=== PATIENT | female | born 1950 | race Caucasian/White ===

== ENCOUNTER 2021-02-12 16:12 | Emergency (ER) | payer MEDICARE, SELFPAY ==
--- NOTE | ~2021-02-12 | US_ITS ---
EXAMINATION: US venous doppler [facility] DATE: 02/12/2021 16:31 INDICATION: Left lower limb pain and swelling. TECHNIQUE: Grayscale ultrasound images without and with compression and Doppler ultrasound images of the left lower extremity veins were obtained. COMPARISON: None. FINDINGS: The visualized portions of left common femoral vein, profunda (deep) femoral vein, femoral vein, popl iteal vein, peroneal veins, posterior tibial veins, and greater saphenous vein outflow are patent. IMPRESSION: 1. No deep venous thrombosis. Reviewed, dictated and finalized at location A.
[2021-02-12 16:14] VITALS: BP 147/98; PULSE 84; RESP 16; TEMP 36.2; O2SAT 100
--- NOTE | 2021-02-12 17:20 | ED.LOWEXIN ---
HPI - Extremity Injury (Lower) General Chief Complaint: Extremity Injury, Lower Stated Complaint: pain left lower leg Time Seen by Provider: 02/12/21 17:12 Source: patient Mode of arrival: ambulatory Limitations: no limitations History of Present Illness HPI Narrative: This is a 70-year-old female that presents to the emergency department for intermittent left calf pain noted over the last couple of weeks. Reports an achy pain in the left calf that seems to be worse after being on her feet. Reports her doctor was concerned she may have a blood clot so was sent to the emergency department. Patient denies any current pain. Denies fever, erythema, edema, or recent injury or trauma. Related Data Allergies Allergy/AdvReac Type Severity Reaction Status Date / Time Penicillins Allergy Mild Verified 03/09/18 15:49 Review of Systems Review of Systems: Narrative: CONSTITUTIONAL: Denies fever SKIN: Denies rash MUSCULOSKELETAL: Reports myalgia. NEUROLOGIC: Denies numbness All systems reviewed & are unremarkable except as noted in HPI and below PMFSH Past Medical History Medical History (Updated 02/12/21 @ 17:27 by Lois Hudson PA-C) History of depression Surgical History Surgical History (Updated 02/12/21 @ 17:23 by Lois Hudson PA-C) History of appendectomy Exam Narrative: Exam Narrative: GENERAL: Well-appearing, well-nourished, and in no acute distress. HEAD: Normocephalic, atraumatic. EYES: EOMI. EXTREMITIES: Normal range of motion. No edema, erythema, warmth or obvious deformity. Normal DP pulses. Normal sensation SKIN: Warm, dry, no rash. NEURO: No focal deficits. Alert and oriented x3. PSYCH: Normal mood and affect Course Vital Signs Vital signs: Vital Signs Temperature 97.1 F L 02/12/21 16:14 Pulse Rate 84 02/12/21 16:14 Respiratory Rate 16 02/12/21 16:14 Blood Pressure 147/98 H 02/12/21 16:14 Pulse Oximetry 100 02/12/21 16:14 Temperature 97.1 F L 02/12/21 16:14 Pulse Rate 84 02/12/21 16:14 Respiratory Rate 16 02/12/21 16:14 Blood Pressure 147/98 H 02/12/21 16:14 Pulse Oximetry 100 02/12/21 16:14 MDM - Extremity Injury (Lower) MDM Narrative Medical decision making narrative: Patient presents to the ER for intermittent achy left calf pain over the last couple of weeks. Seems to be worsened after prolonged standing. No pain while in the ED currently. No recent injury or trauma. She is afebrile and nontoxic-appearing. No erythema, warmth, or edema of the leg. Normal DP pulse. Patient was sent by primary provider to rule out DVT. Left lower extremity venous Doppler is without evidence of DVT. Suspect her discomfort is possibly due to varicosities of the lower extremities. She is stable and felt appropriate for further outpatient evaluation. She was given warnings to return to the ER Imaging Data Radiologist's impression: ITS Impressions Venous Doppler Study 02/12/21 16:32 IMPRESSION: 1. No deep venous thrombosis. Critical Care Time Critical Care Time Critical Care Time: No Discharge Plan Discharge Clinical Impression: Pain of left calf Patient Disposition: Home, Self-Care Condition: Stable Instructions: Venous Insufficiency (DC) Additional Instructions: Return to the emergency department if you experience fever, redness and swelling of your leg, numbness, or any other symptoms that are concerning to you Wear compression stockings. Elevate your legs while seated Follow-up with your primary care doctor Follow-up/Referrals: Mark Anthony,Bettye Moyer MD [Primary Care Provider] - 1 Week
[2021-02-12 17:50] VITALS: BP 128/89; PULSE 76; RESP 18; TEMP 36.6; O2SAT 97
== END 2021-02-12 17:59 | disposition home or self-care (01) ==
PROVIDERS: Emergency Provider Emergency Medicine; PCP Family Medicine
DX: M79.662 Pain in left lower leg (principal)
CPT/HCPCS: 93971; 99284

== ENCOUNTER 2022-07-27 08:43 | Outpatient (CLI) | payer MEDICARE, SELFPAY ==
--- NOTE | ~2022-07-27 | MM_ITS ---
EXAMINATION: MM screening geovanna BI w [facility] HISTORY: Screening TECHNIQUE: Craniocaudal and mediolateral oblique 3-D tomosynthesis images were obtained and synthetic 2-D images were generated. CAD analysis was submitted and interpreted. COMPARISON: 08/22/2019 BREAST PARENCHYMAL COMPOSITION: The breasts are heterogeneously dense, which may obscure small masses FINDINGS: There is possible architectural distortion of the right breast superiorly on MLO view. The left breast is stable without evidence for malignancy. IMPRESSION: 1. Possible architectural distortion superior aspect of the right breast on MLO view. 2. Additional mammographic views and possible breast ultrasound are recommended. BI-RADS Category 0: Incomplete: Needs additional imaging evaluation. Reviewed, dictated and finalized at location A. O RETOUCHER IMPRESSION: 1. Possible architectural distortion superior aspect of the right breast on MLO view. 2. Additional mammographic views and possible breast ultrasound are recommended . BI-RADS Category 0: Incomplete: Needs additional imaging evaluation.
== END 2022-07-27 08:44 | disposition home or self-care (01) ==
PROVIDERS: PCP Family Medicine; Visit Provider Family Medicine
DX: Z12.31 Encounter for screening mammogram for malignant neoplasm of breast (principal); R92.8 Other abnormal and inconclusive findings on diagnostic imaging of breast
CPT/HCPCS: 77063; 77067

== ENCOUNTER 2022-08-20 11:34 | Outpatient (CLI) | payer MEDICARE, SELFPAY ==
--- NOTE | ~2022-08-20 | MMUS_ITS ---
EXAMINATION: MM diagnostic geovanna RT w [facility], US breast RT limited HISTORY: Possible architectural distortion on prior screening mammogram. TECHNIQUE: Additional 3-D tomosynthesis images of the right breast were performed and synthetic 2-D i mages were generated. CAD analysis was submitted and interpreted. High resolution Limited right breas t ultrasound was performed. COMPARISON: Comparison to multiple prior studies sequentially, with oldest reviewed study dated 03/31. BREAST PARENCHYMAL COMPOSITION: The breasts are heterogeneously dense, which may obscure small masses FINDINGS: MAMMOGRAPHIC FINDINGS: There are no suspicious masses, calcifications or architectural distortion in the right breast to sug gest malignancy. ULTRASOUND: Limited right breast ultrasound: Normal heterogeneous echotexture without focal solid or cystic mass. IMPRESSION: 1. No evidence for malignancy in the right breast. 2. Routine yearly screening mammogram and regular clinical breast examination are recommended. BI-RADS Category 1: Negative Reviewed, dictated and finalized at location A. SSIAN ADMINISTRATOR IMPRESSION: 1. No evidence for malignancy in the right breast. 2. Routine yearly screening mammogram and regular clinical breast examination a re recommended. BI-RADS Category 1: Negative
== END 2022-08-20 11:35 | disposition home or self-care (01) ==
LOC: ANHIMG 11:34
PROVIDERS: PCP Family Medicine; Visit Provider Physician Assistant
DX: R92.8 Other abnormal and inconclusive findings on diagnostic imaging of breast (principal)
CPT/HCPCS: 76642; 77061; 77065; G0279

== ENCOUNTER 2023-01-15 09:10 | Emergency (ER) | payer MEDICARE, SELFPAY ==
--- NOTE | 2023-01-15 09:13 | ED.SKABFB ---
HPI - Skin/Abscess/Foreign Bdy General Chief complaint: Skin/Abscess/Foreign Body Stated complaint: Rash Time Seen by Provider: 01/15/23 09:12 Source: patient Mode of arrival: ambulatory Limitations: no limitations History of Present Illness HPI narrative: Ms. Chawla is a 72-year-old female patient presenting to the clinic today with complaints of a rash on her face. She reports that she believes this is shingles as she has had this before. States that it is around her left eye. Denies any visual changes to the left eye. Rash is very itchy, nonpainful, and scattered all over her face. When asked if she has used any new soaps or shampoos she states that she did buy a new facial wash. Related Data Allergies Allergy/AdvReac Type Severity Reaction Status Date / Time Penicillins Allergy Severe Anaphylactic Verified 01/15/23 09:15 Shock Review of Systems Review of Systems: Pertinent positives per HPI. Patient denies any fever, chills, rash, headache, visual changes, dizziness, cough, runny nose, sore throat, shortness of breath, chest pain, palpitations, nausea, vomiting, diarrhea, constipation, abdominal pain, or any urinary issues. [facility] Past Medical History Medical History Depression History of depression Surgical History Surgical History History of appendectomy History of left knee surgery 1987 Family History Family History Other Heart disease Social History Social History Smoking status: Never smoker Second hand tobacco smoke exposure: No Alcohol intake: current Drinks per week: 12 Alcohol use details: wine, 2 at dinner per week Substance use: never Substance use type: does not use Living arrangements: alone Gender identity (if verbalized by the patient): Female Sexual Orientation (if Verbalized by the Patient): Straight or Heterosexual Spiritual care concerns: No Agree to blood products: Yes Comments At the time of my signature, I reviewed and agree with the nursing past medical, surgical, social, and family history. There is no relevant family history pertinent to the patient complaint. Exam Narrative: General: Well-developed, well nourished, in no apparent distress Head: Normocephalic, atraumatic, red itchy welt like rash scattered across to forehead, around left eye, and or bilateral cheeks. Eyes: Pupils equally round and reactive to light bilaterally, EOM intact, sclera and conjunctive clear, no discharge, lids normal Ears: TMs intact and clear, ear canals clear, no drainage, grossly hearing normal. Nose: Nares patent, no discharge, no inflammation, no sinus tenderness. Mouth: Oropharynx without lesions or masses, good dentition, MMM. Neck: Supple, trachea midline, no enlargement of anterior or posterior cervical nodes, no thyroid masses or goiter palpable. Cardio: Regular rate and rhythm, s1 and s2 normal, no murmur appreciated. Resp: Clear to auscultation bilaterally anteriorly and posteriorly, no rhonchi, rales, wheezing or rubs Course Course Emergency Course: Portions of this record may have been created with voice recognition software. Level of Care: Express Care Visit Vital Signs Vital signs: Vital signs reviewed MDM - Skin/Abscess/Foreign Bdy MDM Narrative Medical decision making narrative: At the time of visit patient is resting comfortably on the exam table. I suspect patient has contact dermatitis due to a new facial wash she is using. Prescription for prednisone was sent to the pharmacy and supportive measures were discussed with the patient she voiced understanding discharge instructions agrees to treatment plan. Differential Diagnosis Differential diagnosis: Likely abscess of skin or subc
[2023-01-15 09:20] VITALS: BP 162/96; PULSE 76; RESP 12; TEMP 36.7; O2SAT 98
== END 2023-01-15 09:32 | disposition home or self-care (01) ==
PROVIDERS: Emergency Provider Nurse Practitioner Family; PCP Family Medicine
DX: L25.9 Unspecified contact dermatitis, unspecified cause (principal); F32.A Depression, unspecified
CPT/HCPCS: 99213; G0463

== ENCOUNTER 2023-02-18 08:16 | Emergency (ER) | payer MEDICARE, SELFPAY ==
--- NOTE | 2023-02-18 08:19 | ED.WOUNDLAC ---
HPI - Wound/Laceration General Chief Complaint: Wound/Laceration Stated Complaint: Left Hand Thumb Laceration Time Seen by Provider: 02/18/23 08:18 Source: patient Mode of arrival: ambulatory Limitations: no limitations History of Present Illness HPI narrative: Shikha is a 72-year-old female patient presenting to the clinic today with complaints of a laceration to her proximal medial left thumb. She reports she cut it on a piece of picture frame. Tetanus status is up-to-date. Related Data Allergies Allergy/AdvReac Type Severity Reaction Status Date / Time Penicillins Allergy Severe Anaphylactic Verified 02/18/23 08:26 Shock Review of Systems Review of Systems: Pertinent positives per HPI. Patient denies any fever, chills, rash, headache, visual changes, dizziness, cough, runny nose, sore throat, shortness of breath, chest pain, palpitations, nausea, vomiting, diarrhea, constipation, abdominal pain, or any urinary issues. PMFSH Past Medical History Medical History Depression History of depression Surgical History Surgical History History of appendectomy History of left knee surgery 1987 Family History Family History Other Heart disease Social History Social History Smoking status: Never smoker Second hand tobacco smoke exposure: No Alcohol intake: current Drinks per week: 12 Alcohol use details: wine, 2 at dinner per week Substance use: never Substance use type: does not use Living arrangements: alone Gender identity (if verbalized by the patient): Female Sexual Orientation (if Verbalized by the Patient): Straight or Heterosexual Spiritual care concerns: No Agree to blood products: Yes Comments At the time of my signature, I reviewed and agree with the nursing past medical, surgical, social, and family history. There is no relevant family history pertinent to the patient complaint. Exam Narrative: General: Well-developed, well nourished, in no apparent distress Head: Normocephalic, atraumatic. Cardio: Regular rate and rhythm, s1 and s2 normal, no murmur appreciated. Resp: Clear to auscultation bilaterally, no rhonchi, rales, wheezing or rubs. Integumentary: [place], warm, and dry, intact without lesion, no rashes. 1 cm vertical laceration to the left medial proximal thumb. Bleeding controlled Course Course Emergency Course: Portions of this record may have been created with voice recognition software. Level of Care: Express Care Visit Vital Signs Vital signs: Vital Signs Temperature 36.5 C 02/18/23 08:26 Pulse Rate 83 02/18/23 08:26 Respiratory Rate 16 02/18/23 08:26 Blood Pressure 163/91 H 02/18/23 08:26 Pulse Oximetry 99 02/18/23 08:26 Oxygen Delivery Room Air 02/18/23 08:26 Temperature 36.5 C 02/18/23 08:26 Pulse Rate 83 02/18/23 08:26 Respiratory Rate 16 02/18/23 08:26 Blood Pressure 163/91 H 02/18/23 08:26 Pulse Oximetry 99 02/18/23 08:26 Oxygen Delivery Room Air 02/18/23 08:26 Vital signs reviewed Procedures Laceration Laceration 1: Date: 02/18/23 Site: hand (left thumb) Side (If applicable): left Size (cm): 1 Description: linear Depth: simple, single layer Local Anesthetic: lidocaine 1% Amount of anesthesia used (mL): 2 Pre-repair: wound explored and irrigated ====== Skin Level ====== Skin layer closed with: nylon Size (cm): 4-0 Number of sutures: 3 Technique: simple, interrupted ====== Subcutaneous Layer ====== ====== Muscle Layer ====== ====== Tendon Layer ====== Dressing: Verbal consent obtained for laceration repair. Risk and benefits
[2023-02-18 08:26] VITALS: BP 163/91; PULSE 83; RESP 16; TEMP 36.5; O2SAT 99
== END 2023-02-18 08:52 | disposition home or self-care (01) ==
PROVIDERS: Emergency Provider Nurse Practitioner Family; PCP Family Medicine
DX: S61.012A Laceration without foreign body of left thumb without damage to nail, initial encounter (principal); W45.8XXA Other foreign body or object entering through skin, initial encounter; F32.A Depression, unspecified
CPT/HCPCS: 12001; 99212; G0463

== ENCOUNTER 2023-03-01 15:01 | Emergency (ER) | payer MEDICARE, SELFPAY ==
--- NOTE | 2023-03-01 15:03 | ED.WOUNDLAC ---
HPI - Wound/Laceration General Stated Complaint: suture removal Time Seen by Provider: 03/01/23 15:13 Source: patient and RN notes reviewed Mode of arrival: ambulatory Limitations: no limitations History of Present Illness HPI narrative: 72-year-old female presents concern for suture removal. She reports 3 intact sutures on the 1st digit of her left hand. She denies any redness, swelling, drainage. Related Data Allergies Allergy/AdvReac Type Severity Reaction Status Date / Time Penicillins Allergy Severe Anaphylactic Verified 03/01/23 15:15 Shock Review of Systems Review of Systems: CONSTITUTIONAL: Denies malaise, chills, sweats, or fever. SKIN: Reports 3 sutures that need removed to the 1st digit of her left hand MUSCULOSKELETAL: Denies musculoskeletal pain. All systems reviewed & are unremarkable except as noted in HPI and below PMFSH Past Medical History Medical History Depression History of depression Surgical History Surgical History History of appendectomy History of left knee surgery 1987 Family History Family History Other Heart disease Social History Social History Smoking status: Never smoker Second hand tobacco smoke exposure: No Alcohol intake: current Drinks per week: 12 Alcohol use details: wine, 2 at dinner per week Substance use: never Substance use type: does not use Living arrangements: alone Gender identity (if verbalized by the patient): Female Sexual Orientation (if Verbalized by the Patient): Straight or Heterosexual Spiritual care concerns: No Agree to blood products: Yes Comments At time of signature, agree with nursing past medical, surgical, social and family history. There is no relevant family history pertinent to the presenting complaint Exam Narrative: GENERAL: Well-appearing, well-nourished, and in no acute distress. HEAD: Normocephalic, atraumatic. EYES: PERRLA ENT: Mucous membranes moist. NECK: Supple. No lymphadenopathy CHEST: Clear to auscultation. No respiratory distress. HEART: Regular rate and rhythm. SKIN: Warm, dry. Three intact sutures noted to the 1st digit of the left hand, wound is approximated without drainage, induration, erythema or edema NEURO: Alert and oriented x3. PSYCH: Normal mood and affect Course Course Emergency Course: Patient is aware of diagnosis, understands and agrees to treatment plan. Anticipatory guidance given. Patient agrees to follow-up as directed and is aware of reasons to seek care at the emergency department. Portions of this record may have been created with voice recognition software Level of Care: Express Care Visit Vital Signs Vital signs: Reviewed. MDM - Wound/Laceration MDM Narrative Medical decision making narrative: Verbal consent was obtained. Wound well approximated, no erythema, induration, or discharge noted. 3 sutures completely removed in a sterile fashion. Patient tolerated procedure well, no complications. Patient advised to look for and return for any signs of infection such as redness, swelling, discharge, or worsening pain. Critical Care Time Critical Care Time Critical Care Time: No Discharge Plan Discharge Clinical Impression: Visit for suture removal Patient Disposition: Home, Self-Care Condition: Stable Instructions: Stitches Removal (ED) Additional Instructions: AFTER the stitches are removed: Clean your wound as directed. Carefully wash your wound with soap and water. Pat the area dry with a clean towel. Protect your wound. Your wound can swell, bleed, or split open if it is stretched or bumped. You may need to wear a bandage that supports your wound until it is completely healed. How to
[2023-03-01 15:15] VITALS: BP 138/81; PULSE 86; RESP 16; TEMP 36.9; O2SAT 98
== END 2023-03-01 15:24 | disposition home or self-care (01) ==
PROVIDERS: Emergency Provider Nurse Practitioner; PCP Family Medicine
DX: S61.210D Laceration without foreign body of right index finger without damage to nail, subsequent encounter (principal); X58.XXXD Exposure to other specified factors, subsequent encounter; F32.A Depression, unspecified
CPT/HCPCS: 99211; G0463

== ENCOUNTER 2023-03-07 09:50 | Observation (INO) | payer MEDICARE, SELFPAY ==
[2023-03-07] VITALS (10 sets, daily range): BP systolic 138–182; BP diastolic 76–107; PULSE 76–96; RESP 11–22; TEMP 36.1–36.4; O2SAT 92–99; BMI 29.8
--- NOTE | ~2023-03-07 | XR_ITS ---
EXAMINATION: XR chest 1V portable DATE: 03/07/2023 10:17 INDICATION: Medial chest pain. TECHNIQUE: A single frontal view of the chest was obtained on 2 radiographs. COMPARISON: None. FINDINGS: Sensitivity is decreased by obesity. The chest demonstrates clear lungs without pneumonia, pleural effusion, or pneumothorax. The heart size is normal. IMPRESSION: 1. No acute cardiopulmonary disease. Reviewed, dictated and finalized at location A.
--- NOTE | ~2023-03-07 | NM_ITS ---
EXAMINATION: NM razia stress w perfusion DATE: 03/08/2023 13:50 INDICATION: Chest pain. TECHNIQUE: Rest images were obtained following intravenous administration of 10.1 mCi Tc99m tetrofosm in (Myoview). The patient was infused intravenously with Lexiscan (regadenoson). Then, 33 mCi Tc99m t etrofosmin (Myoview) was administered intravenously, and stress images were obtained. Data was recons tructed into short axis and horizontal and vertical long axis SPECT images. Gated SPECT images were a lso obtained. COMPARISON: Chest CT 03/07/2023 FINDINGS: There is no definite reversible or fixed perfusion abnormality to suggest ischemia or infar ction. There is no segmental wall motion abnormality. Left ventricular ejection fraction measures > 70%. IMPRESSION: 1. No definite ischemia or infarct. 2. Normal left ventricular ejection fraction measuring >70%. Reviewed, dictated and finalized at location A.
--- NOTE | ~2023-03-07 | US_ITS ---
Procedure: Duplex Doppler examination of the bilateral carotids. Indication: Syncope Technique: Real time, color-flow and pulse wave Doppler examination of the bilateral carotids was performed. Findings: Guzman scale ultrasonography of the right neck demonstrated moderate plaque at the right carotid bulb. There was demonstration of normal color-flow and Doppler waveforms within the right common, internal and external carotid arteries. The peak systolic velocities in the right common, internal and externa l carotid arteries were demonstrated to be 103 cm/sec, 87 cm/sec and 62 cm/sec respectively. The [facility] t ICA/CCA ratio was 0.8.The proximal right internal carotid artery demonstrates 0% stenosis relative to the normal distal artery lumen diameter. Guzman scale sonography of the left neck demonstrated small plaque at the proximal left internal caroti d artery. There was demonstration of normal color-flow and wave forms within the left common, interna l and external carotid arteries. The peak systolic velocities in the left common, internal and banking assistant al carotid arteries were demonstrated to be 75cm/sec, 89 cm/sec and 95 cm/sec respectively. The left ICA/CCA ratio was 1.2. The proximal left internal carotid artery demonstrates 0% stenosis relative to the normal distal artery lumen diameter. There was antegrade flow demonstrated in the bilateral vertebral arteries. Impression: No hemodynamically significant stenosis of the bilateral internal carotid arteries. Antegrade flow in the bilateral vertebral arteries. Note: The methodology used is an indirect measurement validated against a direct method (such as the NASCET criteria) that compares diameters at the stenosis to the distal ICA. Reviewed, dictated and finalized at location . Impression: No hemodynamically significant stenosis of the bilateral internal carotid arter ies. Antegrade flow in the bilateral vertebral arteries. Note: The methodology used is an indirect measurement validated against a direct meth od (such as the NASCET criteria) that compares diameters at the stenosis to the distal ICA.
--- NOTE | ~2023-03-07 | CT_ITS ---
EXAMINATION: CTA chest PE protocol DATE: 03/07/2023 11:05 INDICATION: Chest pain. TECHNIQUE: Computed tomography angiography (CTA) of the chest was performed with 100 mL Omnipaque-350 intravenous contrast timed to evaluate the pulmonary arteries. Coronal maximum intensity projection 3D-reconstructions were created by the technologist. Automated exposure control and iterative reconst ruction technique were employed. The dose-length product was 663.92 mGy-cm. COMPARISON: None. FINDINGS: There is peripheral septal thickening with associated mild groundglass opacities in the inf erior lungs. No pleural effusion. The heart size is normal. No pericardial effusion. There is no pulm onary embolus. There is diffuse hepatic steatosis. There is severe thoracic spondylosis. IMPRESSION: 1. No pulmonary embolus. 2. Mild peripheral lower lung disease, which may be mild pulmonary edema and/or mild atelectasis/scar ring. Reviewed, dictated and finalized at location A. IMPRESSION: 1. No pulmonary embolus. 2. Mild peripheral lower lung disease, which may be mild pulmonary edema and/or mild atelectasis/scarring.
--- NOTE | 2023-03-07 09:56 | ECG_ITS ---
Measurements Intervals [place] Rate: 88 P: 35 MO: 132 QRS: -32 QRSD: 120 T: 17 QT: 366 QTc: 443 Interpretive Statements SINUS RHYTHM LEFT AXIS DEVIATION RIGHT BUNDLE BRANCH BLOCK BASELINE ARTIFACT- I, II, III, AVR, AVL, AVF ABNORMAL ECG NO PREVIOUS ECG AVAILABLE FOR COMPARISON Electronically Signed On 03-07-2023 11:21:35 CDT by Vishnu Moses D.O.
--- NOTE | 2023-03-07 10:08 | ED.SYNCOPE ---
HPI - Syncope General Chief Complaint: Syncope Stated Complaint: CHEST PAIN Time Seen by Provider: 03/07/23 09:56 History of Present Illness HPI narrative: Pt says she awoke on the foor of her bedroom sometime in the middle of the night. Pt thinks she passed out because she has no idea how she wound up on the floor. Pt denies injury or RIGGS but says she noticed sharp paiin in her chest when she awoke and this has continued throughout the night. Pt says it is worst with deep breath and movement. 8/10 now. Pt has no prior cardiac history and has not had similar symptoms in past. Related Data Home Medications Medication Instructions Recorded Confirmed acetaminophen 500 mg tablet 500 mg PO Q6H PRN Headache 03/07/23 03/07/23 ibuprofen 600 mg tablet 600 mg PO Q6H PRN headache 03/07/23 03/07/23 Allergies Allergy/AdvReac Type Severity Reaction Status Date / Time Penicillins Allergy Severe Anaphylactic Verified 03/01/23 15:15 Shock almond Allergy Itching Verified 03/07/23 16:32 Review of Systems Review of Systems: All systems reviewed & are unremarkable except as noted in HPI and below [facility] Past Medical History Medical History (Updated 03/07/23 @ 14:57 by Catalina Bal NP) Depression History of depression Sleep walking Surgical History Surgical History (Updated 03/07/23 @ 14:57 by Catalina Bal NP) History of appendectomy History of left knee surgery 1986 S/P tonsillectomy Family History Family History (Updated 03/07/23 @ 14:58 by Catalina Bal NP) Father Acute myocardial infarction Mother No problems noted. Other Heart disease Social History Social History Smoking status: Never smoker Second hand tobacco smoke exposure: No Alcohol intake: current Drinks per week: 14 Alcohol use details: wine, 2 at dinner per week Substance use: never Substance use type: does not use Lack of Transportation: No Lack of Food: Never True Current Housing: I Have Housing Concerned About Future Housing: No Difficulty Paying Gas/Electric Bills: No Difficulty Paying for Meds: No Currently Unemployed: No Education: Associate Degree Difficulty w/ Childcare or Family Care: No Living arrangements: alone Gender identity (if verbalized by the patient): Female Sexual Orientation (if Verbalized by the Patient): Straight or Heterosexual Spiritual care concerns: No Agree to blood products: Yes Exam Const: General: healthy appearing Nutritional Appearance: well nourished Orientation/consciousness: patient oriented x3 Limitations: no limitations Eyes: Conjunctivae: conjunctivae normal EOM: EOMs intact bilaterally Neck: Neck: normal visual inspection Chest: Chest palpation & inspection: normal inspection of the chest and no tenderness Resp: Effort & Inspection: normal respiratory effort Auscultation: clear to auscultation bilaterally Cardio: Rate: regular rate Rhythm: regular rhythm GI: GI Palp: Yes Soft to palpation Auscultation: normal bowel sounds Rectal Exam: normal sphincter tone Back/Spine/Pelvis: Back: no CVA tenderness Skin: General skin exam: normal color Rashes: no rashes Wounds: no wounds Neuro: General: patient oriented x3, moves all extremities, no meningeal signs and no focal motor deficits Cranial nerves: Yes Nystagmus not present Extrem: General: normal to inspection and no clubbing, cyanosis or edema Psych: Mental Status: mental status grossly normal Affect: Anxious affect present Attitude: cooperative Course Vital Signs Vital signs: Vital Signs Temperature 97.5 F L 03/07/23 09:56 Pulse Rate 85 03/07/23 09:56 Respiratory Rate 16 03/07/23 09:56 Blood Pressure 182/96 H 03/07/23 09:56 Pulse Oximetry 96 03/07/23 09:56 Oxygen Delivery Room Air 03/07/23 09:56 Temperature 97.6 F 03/07/23 16:21 Pulse Rate 96 03/07/23 16:21 Respi
[2023-03-07] MEDS: MORPHINE SULFATE (*CRX) 2 MG/ML INJ IV PUSH (10:17)
[2023-03-07] MEDS: ONDANSETRON INJ 4 MG/2 ML VIAL IV PUSH (10:17)
[2023-03-07 10:19] LABS: Basophils Percent Auto 0.3 % (0.2-1.2); Eosinophils Absolute Auto 0.2 K/mm3 (0-0.3); Eosinophils Percent Auto 2.5 % (0-4.4); Hematocrit 45.4 % (37.0-47.0); Hemoglobin 15.5 g/dL (12.0-15.0); Immature Granulocyte Absolute 0.04 K/mm3 (0.00-0.031); Immature Granulocyte Percent A 0.6 % (0-0.5); Lymphocytes Absolute Auto 1.64 K/mm3 (0.9-3.2); Lymphocytes Percent Auto 22.6 % (18.3-44.2); Mean Corpuscular HGB Conc 34.1 g/dl (32-36); Mean Corpuscular Hemoglobin 31.5 pg (26-34); Mean Corpuscular Volume 92.3 fl (80-100); Mean Platelet Volume 8.9 fl (7.4-10.4); Monocytes Absolute Auto 0.6 K/mm3 (0.1-0.6); Monocytes Percent Auto 8.4 % (2.6-8.5); Neutrophils Absolute Auto 4.8 K/mm3 (1.3-6.7); Neutrophils Percent Auto 65.6 % (45.5-73.1); Platelet Count Result 162 k/mm3 (150-375); Red Blood Count 4.92 M/mm3 (4.2-5.4); Red Cell Distribution Width 13.3 % (11.5-14.5); White Blood Count 7.3 K/mm3 (4.5-10.0)
[2023-03-07] MEDS: ASPIRIN 81 MG CHEWABLE TABLET 324 MG PO (10:19)
[2023-03-07 10:30] LABS: Alanine Aminotransferase 41 U/L (6-35); Albumin Level 4.4 g/dL (3.5-5.1); Alkaline Phosphatase 86 U/L (38-126); Anion Gap 6 mmol/L (8-16); Aspartate Amino Transferase 55 U/L (14-36); Bilirubin,Total 0.5 mg/dL (0.2-1.3); Blood Urea Nitrogen 16 mg/dL (7-17); Calcium 9.2 mg/dL (8.4-10.2); Carbon Dioxide 26 mmol/L (22-30); Chloride 103 mmol/L (98-107); Estimated CRCL calculation 89 ml/min; Estimated Glomerular Filt Rate > 60; Glucose 104 mg/dL (65-110); Lipase 129 U/L (23-300); Potassium 4.1 mmol/L (3.4-5.0); Sodium 135 mmol/L (137-145)
[2023-03-07 10:37] LABS: INR 0.9; Prothrombin Time 12.4 Seconds (11.1-14.7)
[2023-03-07 10:38] LABS: Partial Thromboplastin Time 29.6 SECONDS (22.3-36.8)
[2023-03-07 10:42] LABS: Troponin I < 0.012 ng/mL (0.000-0.034)
[2023-03-07 10:52] LABS: Magnesium 2.1 mg/dL (1.6-2.3)
[2023-03-07 11:02] LABS: D Dimer 0.59 ug/mL (<0.48); NT Pro B Type Natriuretic Pept 59 pg/mL (19.9-100)
--- NOTE | 2023-03-07 14:53 | PM.IMHP ---
H&P: HPI History of Present Illness Date/Time: 03/07/23 14:53 Chief Complaint: Syncopal Narrative: This is a 72-year-old female patient who has a history of depression controlled with medication. The patient states that she also sleep walks at times. The patient stated that she woke up on the floor bedroom sometime in the middle a night. She thinks she passed out had no idea how she wound up on the floor. She thinks that she may have been sleepwalking. The patient noticed that she has a abrasion to her right knee and feels that she may have fell down on her right knee initially. The patient initially had no injury but states she noticed a sharp pain in her chest when she woke. The patient states that she has chest pain when she moves. She does not take any medication to make it feel better. The pain is worse with deep breath and with movement. I notice when she leaned forward hurt worse. Patient has no prior cardiac history. She did not have any fever chills. She had no cough. She had no chest pain prior to going to bed last night. Her D-dimer 0.59. Sodium 135. AST is 55 and ALT is 41. Troponins are negative x2. EKG was read as sinus rhythm right bundle-branch block. She was given aspirin, Zofran, morphine and Toradol. Chest x-ray was read as. Chest CTA was read as a follow. No pulmonary embolus. 2. Mild peripheral lower lung disease, which may be mild pulmonary edema and/or mild atelectasis/scarring. The patient is being admitted to observation status on the date of service 03/07/2023 Review of Systems Review of Systems: All systems reviewed & are unremarkable except as noted in HPI and below Constitutional: Constitutional: Reports as per HPI and Reports no additional constitutional complaints Eyes: Eyes: Reports as per HPI and Reports no additional eye complaints ENT: Reports system reviewed and no additional complaints, except as documented and Reports Normal hearing present Cardiovascular: Cardiovascular: Reports no additional cardiovascular complaints Respiratory: Respiratory: Reports no additional respiratory complaints and Reports no additional respiratory complaints Gastrointestinal: Gastrointestinal: Reports as per HPI and Reports no additional gastrointestinal complaints Musculoskeletal: Musculoskeletal: Reports no additional musculoskeletal complaints Integumentary/Breasts: Skin/Breast: Reports system reviewed and no additional complaints, except as docu and Reports as per HPI Neurologic: Reports system reviewed and no additional complaints, except as documented, Reports as per HPI and Reports Normal hearing present Psychiatric: Psychiatric: Reports no additional psychiatric complaints and Reports as per HPI Endocrine: Endocrine: Reports no additional endocrine complaints Hematologic/Lymphatic: Hematologic/Lymphatic: Reports no additional hematologic/lymphatic complaints Allergic/Immunologic: Allergic/Immunologic: Reports no additional allergic/immunologic complaints [facility] Past Medical History Medical History Depression History of depression Sleep walking Surgical History Surgical History (Updated 03/07/23 @ 14:57 by Catalina Bal NP) History of appendectomy History of left knee surgery 1986 S/P tonsillectomy Family History Family History (Updated 03/07/23 @ 14:58 by Catalina Bal NP) Father Acute myocardial infarction Mother No problems noted. Other Heart disease Social History Social History (Updated 03/07/23 @ 18:30 by Catalina Bal NP) Social History: The patient has 1 daughter. She is . She works part-time at [employer]. She lives home alone. She is lifelong nonsmoker. Code status full code Smoking status: Never smoker Second hand tobacco smoke exposure: No Alcohol intake: current Drinks per week: 14 Alcohol use details: wine, 2 at dinner per week Substance u
[2023-03-07 15:12] LABS: Troponin I < 0.012 ng/mL (0.000-0.034)
[2023-03-07] MEDS: KETOROLAC 15 MG/ML VIAL (*BKC) IV PUSH (15:23)
[2023-03-07 19:34] LABS: Troponin I < 0.012 ng/mL (0.000-0.034)
[2023-03-07] MEDS: ACETAMINOPHEN 500 MG TABLET PO (23:09)
[2023-03-08] VITALS (8 sets, daily range): BP systolic 136–171; BP diastolic 77–92; PULSE 69–88; RESP 18–20; TEMP 35.5–36.6; O2SAT 97–99
--- NOTE | 2023-03-08 | ECHO_ITS ---
Patient Info Name: Shikha Chawla Age: 72 years : 1950 Gender: Female Ht: 69 in Wt: 215 lbs BSA: 2.21 m2 HR: 88 bpm BP: 155 / 89 mmHg Heart Rhythm: Sinus Rhythm Technical Quality: Poor Exam Date: 03/08/2023 9:48 AM Exam Location: [facility] Card Pulmonary Patient Status: Inpatient Admit Date: 03/07/2023 Staff Ordering Physician: Catalina Bal NP Community Manager: Viviana Alvarado RDCS Attending Provider: Joshua Vásquez MD Referring Physician: Valeriano CHÁVEZ; Exam Type: CA echo dop color flow w con Study Info Indications - chest pain Reason for Poor Study: poor echocardiographic windows Summary 1. Normal left ventricular size with mild concentric hypertrophy. Good systolic function of all segments. Ejection fraction 60-65%. Grade 2 diastolic dysfunction is present. 2. Mild aortic insufficiency. 3. Pulmonary pressure could not be calculated on this exam. 4. Normal sinus rhythm. Left Ventricle Left ventricular chamber dimension is normal. Left ventricular systolic function is normal, estimated at 60-65%. There is mildly increased left ventricular wall thickness. Left ventricular septal wall motion is normal. The left ventricular diastolic function is grade II diastolic dysfunction. Right Ventricle Right ventricular chamber dimension is normal. Right ventricular systolic function is normal. Left Atria Left atrial chamber dimension is normal. Right Atria Right atrial chamber dimension is normal. Aortic Valve The aortic valve is trileaflet. There is no aortic valve sclerosis. There is no aortic valve stenosis. There is mild aortic valve regurgitation. Pulmonic Valve The pulmonic valve is normal. There is no pulmonic valve stenosis. There is no pulmonic regurgitation. Mitral Valve The mitral valve has normal leaflets. There is no mitral valve stenosis. There is no mitral valve regurgitation. Tricuspid Valve The tricuspid valve leaflets are normal. There is no significant tricuspid valve stenosis. There is trace tricuspid valve regurgitation. No pulmonary hypertension, estimated pulmonary arterial systolic pressure is 13 mmHg. Pericardium/Pleural The pericardium appears normal. There is no pericardial effusion. Inferior Vena Cava Normal inferior vena cava with >50% collapse upon inspiration consistent with Empty right atrial pressure, 10 mmHg. Aorta The aortic root size at the sinus of Valsalva is normal. The prox ascending aorta size is normal. Left Ventricular Outflow Tract Name Value Normal LVOT 2D LVOT Diameter 1.95 cm LVOT Doppler LVOT Peak Gradient 3 mmHg LVOT Mean Gradient 2 mmHg LVOT VTI 21.38 cm LVOT VTI/AV VTI Ratio 0.84 LVOT Stroke Volume 63.70 ml LVOT CO 4.93 l/min LVOT CI 2.23 L/min/m2 Pulmonic Valve Name Value Normal RVOT Doppler
[2023-03-08 06:53] LABS: Basophils Percent Auto 0.4 % (0.2-1.2); Eosinophils Absolute Auto 0.2 K/mm3 (0-0.3); Eosinophils Percent Auto 4.4 % (0-4.4); Hematocrit 44.1 % (37.0-47.0); Hemoglobin 14.6 g/dL (12.0-15.0); Immature Granulocyte Absolute 0.02 K/mm3 (0.00-0.031); Immature Granulocyte Percent A 0.4 % (0-0.5); Lymphocytes Absolute Auto 1.26 K/mm3 (0.9-3.2); Mean Corpuscular HGB Conc 33.1 g/dl (32-36); Mean Corpuscular Hemoglobin 31.3 pg (26-34); Mean Corpuscular Volume 94.4 fl (80-100); Monocytes Absolute Auto 0.4 K/mm3 (0.1-0.6); Monocytes Percent Auto 8.7 % (2.6-8.5); Neutrophils Absolute Auto 3.1 K/mm3 (1.3-6.7); Neutrophils Percent Auto 61.1 % (45.5-73.1); Platelet Count Result 140 k/mm3 (150-375); Red Blood Count 4.67 M/mm3 (4.2-5.4); Red Cell Distribution Width 13.4 % (11.5-14.5)
[2023-03-08 07:04] LABS: Lactic Acid Reflex 0.9 mmol/L (0.7-2.0)
[2023-03-08 07:07] LABS: Alanine Aminotransferase 36 U/L (6-35); Alkaline Phosphatase 68 U/L (38-126); Anion Gap 3 mmol/L (8-16); Aspartate Amino Transferase 45 U/L (14-36); Bilirubin,Total 0.7 mg/dL (0.2-1.3); Blood Urea Nitrogen 17 mg/dL (7-17); Calcium 8.6 mg/dL (8.4-10.2); Carbon Dioxide 31 mmol/L (22-30); Chloride 102 mmol/L (98-107); Estimated CRCL calculation 87 ml/min; Estimated Glomerular Filt Rate > 60; Glucose 109 mg/dL (65-110); Magnesium 2.1 mg/dL (1.6-2.3); Potassium 3.7 mmol/L (3.4-5.0); Sodium 136 mmol/L (137-145)
[2023-03-08] MEDS: ACETAMINOPHEN 500 MG TABLET PO ×2 (08:44→19:42)
[2023-03-08] MEDS: PERFLUTREN LIPID MICROSPHERES 1.5 ML VIAL DILUTED TO 10 ML TOTAL VOLUME IV PUSH (10:00)
[2023-03-08] MEDS: ENOXAPARIN 40 MG/0.4 ML SYRINGE SUB-Q (14:11)
[2023-03-08] MEDS: SERTRALINE HCL 50 MG TABLET 100 MG PO (14:11)
--- NOTE | 2023-03-08 15:01 | EST_ITS ---
Patient Info Name: Shikha Chawla Age: 72 years : 1950 Gender: Female Ht: 69 in Wt: 210 lbs BSA: 2.18 m2 HR: 73 bpm BP: 146 / 82 mmHg Heart Rhythm: Sinus Rhythm Exam Date: 03/08/2023 12:55 PM Exam Location: [facility] Stress Patient Status: Inpatient Admit Date: 03/07/2023 Staff Ordering Physician: Catalina Bal NP Attending Provider: Joshua Vásquez MD Exercise Technologist: Vandana Rueda, REBEKAH Nurse: Ame Proctor APN Exam Type: CA stress razia w NM Study Info Indications R07.9 - Chest pain, unspecified A regadenoson stress test was performed. Summary 1. No abnormal ST-T wave changes with lexiscan. 2. Nuclear test results to follow. Protocol: Lexiscan Stress ECG Details Stage: REST Duration (min): 0 min : 57 sec HR (bpm): 75 SBP (mmHg): 146 DBP (mmHg): 82 Stage: REST Duration (min): 5 min : 23 sec HR (bpm): 79 SBP (mmHg): 146 DBP (mmHg): 82 Stage: STAGE 1 Duration (min): 0 min : 59 sec HR (bpm): 93 SBP (mmHg): 144 DBP (mmHg): 73 Stage: RECOVERY Duration (min): 1 min : 0 sec HR (bpm): 97 SBP (mmHg): 144 DBP (mmHg): 73 Stage: RECOVERY Duration (min): 2 min : 0 sec HR (bpm): 90 SBP (mmHg): 144 DBP (mmHg): 73 Stage: RECOVERY Duration (min): 3 min : 0 sec HR (bpm): 89 SBP (mmHg): 142 DBP (mmHg): 78 Stage: RECOVERY Duration (min): 3 min : 17 sec HR (bpm): 87 SBP (mmHg): 142 DBP (mmHg): 78 Rest HR: 79 bpm Peak HR: 99 bpm Rest Sys BP: 146 mmHg Peak Sys BP: 144 mmHg Max Pred HR: 148 bpm % Max Pred HR: 67 % Target HR: 126 bpm Max RPP: 14,256 bpm*mmHg BP Response: Normal blood pressure response Termination Reason: Completed protocol Cardiac Symptoms: None Total Time: 1 min : 0 sec Rest Chung BP: 82 mmHg Peak Chung BP: 73 mmHg Total Dose: 0.4 mg Resting ECG Normal sinus rhythm - normal ECG. Stress ECG No abnormal ST/T wave changes with exercise. Arrhythmias None. Report Signatures
--- NOTE | 2023-03-08 17:27 | WPDPN ---
Progress Note: A&P Assessment and Plan (1) Syncope: Code(s): R55 - Syncope and collapse Status: Acute Assessment and Plan: This is a 72-year-old female patient who has a history of depression controlled with medication.? The patient states that she also sleep walks at times.? The patient stated that she woke up on the floor bedroom sometime in the middle a night.? She thinks she passed out had no idea how she wound up on the floor.? She thinks that she may have been sleepwalking.? The patient noticed that she has a abrasion to her right knee and feels that she may have fell down on her right knee initially.? The patient initially had no injury but states she noticed a sharp pain in her chest when she woke.? The patient states that she has chest pain when she moves.? She does not take any medication to make it feel better.? The pain is worse with deep breath and with movement.? I notice when she leaned forward hurt worse.? Patient has no prior cardiac history.? She did not have any fever chills.? She had no cough.? She had no chest pain prior to going to bed last night.? Her D-dimer 0.59.? Sodium 135.? AST is 55 and ALT is 41.? Troponins are negative x2.? EKG was read as sinus rhythm right bundle-branch block.? She was given aspirin, Zofran, morphine and Toradol.? Chest x-ray was read as.? Chest CTA was read as a follow. No pulmonary embolus. 2. Mild peripheral lower lung disease, which may be mild pulmonary edema and/or mild atelectasis/scarring.? The patient is being admitted to observation status on the date of service 03/07/2023 04/08/2023 interval history: patient is admitted with c/o of syncopal episode, initial work up concerning for cardiac issues, will consult tube tester and further recommendations to follow. (2) Chest pain: Code(s): R07.9 - Chest pain, unspecified Status: Acute Assessment and Plan: Patient with chest pain, ekg is normal and 3 sets of cardiac enzymes are negative, will do cardiac echo. (3) Depression: Code(s): F32.A - Depression, unspecified Status: Acute Subjective Date/time seen: 03/08/23 17:27 Interval history: Syncopal Narrative: This is a 72-year-old female patient who has a history of depression controlled with medication.? The patient states that she also sleep walks at times.? The patient stated that she woke up on the floor bedroom sometime in the middle a night.? She thinks she passed out had no idea how she wound up on the floor.? She thinks that she may have been sleepwalking.? The patient noticed that she has a abrasion to her right knee and feels that she may have fell down on her right knee initially.? The patient initially had no injury but states she noticed a sharp pain in her chest when she woke.? The patient states that she has chest pain when she moves.? She does not take any medication to make it feel better.? The pain is worse with deep breath and with movement.? I notice when she leaned forward hurt worse.? Patient has no prior cardiac history.? She did not have any fever chills.? She had no cough.? She had no chest pain prior to going to bed last night.? Her D-dimer 0.59.? Sodium 135.? AST is 55 and ALT is 41.? Troponins are negative x2.? EKG was read as sinus rhythm right bundle-branch block.? She was given aspirin, Zofran, morphine and Toradol.? Chest x-ray was read as.? Chest CTA was read as a follow. No pulmonary embolus. 2. Mild peripheral lower lung disease, which may be mild pulmonary edema and/or mild atelectasis/scarring.? The patient is being admitted to observation status on the date of service 03/07/2023 04/08/2023 interval history: patient is admitted with c/o of syncopal episode, initial work up concerning for cardiac issues, will consult tube tester and further recommendations to follow. Objective Data Vital Signs Vital Signs: Vital Signs - 24 hr 03/07/23 20:00 03/07/23 22:00 03/07/23 20:00 Temperature 96.9 F L Pulse Rate 96 7
[2023-03-09] VITALS: PULSE 79
[2023-03-09] MEDS: IBUPROFEN 600 MG TABLET PO (02:52)
[2023-03-09 04:00] VITALS: PULSE 69
[2023-03-09 06:00] VITALS: BP 161/84; PULSE 74; RESP 16; TEMP 35.7; O2SAT 97
[2023-03-09 08:00] VITALS: PULSE 77
[2023-03-09] MEDS: SERTRALINE HCL 50 MG TABLET 100 MG PO (08:45)
[2023-03-09] MEDS: ENOXAPARIN 40 MG/0.4 ML SYRINGE SUB-Q (08:45)
--- NOTE | 2023-03-09 12:27 | PCCCNOTE ---
On 03/09/23, the student, [Karmen Yost], provided care and completed [facility] documentation on this patient. I have reviewed the student's documentation and agree with the findings.
--- NOTE | 2023-03-09 12:46 | PM.DS ---
DS: Admitting Diagnosis Discharge Date 03/09/2023 Admitting Diagnosis syncopal DS: Discharge Diagnosis Discharge Diagnosis (1) Syncope: Code(s): R55 - Syncope and collapse Status: Acute Assessment and Plan: This is a 72-year-old female patient who has a history of depression controlled with medication.? The patient states that she also sleep walks at times.? The patient stated that she woke up on the floor bedroom sometime in the middle a night.? She thinks she passed out had no idea how she wound up on the floor.? She thinks that she may have been sleepwalking.? The patient noticed that she has a abrasion to her right knee and feels that she may have fell down on her right knee initially.? The patient initially had no injury but states she noticed a sharp pain in her chest when she woke.? The patient states that she has chest pain when she moves.? She does not take any medication to make it feel better.? The pain is worse with deep breath and with movement.? I notice when she leaned forward hurt worse.? Patient has no prior cardiac history.? She did not have any fever chills.? She had no cough.? She had no chest pain prior to going to bed last night.? Her D-dimer 0.59.? Sodium 135.? AST is 55 and ALT is 41.? Troponins are negative x2.? EKG was read as sinus rhythm right bundle-branch block.? She was given aspirin, Zofran, morphine and Toradol.? Chest x-ray was read as.? Chest CTA was read as a follow. No pulmonary embolus. 2. Mild peripheral lower lung disease, which may be mild pulmonary edema and/or mild atelectasis/scarring.? The patient is being admitted to observation status on the date of service 03/07/2023 04/08/2023 interval history: patient is admitted with c/o of syncopal episode, initial work up concerning for cardiac issues, will consult dip dyer and further recommendations to follow. (2) Chest pain: Code(s): R07.9 - Chest pain, unspecified Status: Acute Assessment and Plan: Patient with chest pain, ekg is normal and 3 sets of cardiac enzymes are negative, will do cardiac echo. (3) Depression: Code(s): F32.A - Depression, unspecified Status: Acute DS: Summary Hospital Course Reason for hospitalization: Syncopal Narrative: This is a 72-year-old female patient who has a history of depression controlled with medication.? The patient states that she also sleep walks at times.? The patient stated that she woke up on the floor bedroom sometime in the middle a night.? She thinks she passed out had no idea how she wound up on the floor.? She thinks that she may have been sleepwalking.? The patient noticed that she has a abrasion to her right knee and feels that she may have fell down on her right knee initially.? The patient initially had no injury but states she noticed a sharp pain in her chest when she woke.? The patient states that she has chest pain when she moves.? She does not take any medication to make it feel better.? The pain is worse with deep breath and with movement.? I notice when she leaned forward hurt worse.? Patient has no prior cardiac history.? She did not have any fever chills.? She had no cough.? She had no chest pain prior to going to bed last night.? Her D-dimer 0.59.? Sodium 135.? AST is 55 and ALT is 41.? Troponins are negative x2.? EKG was read as sinus rhythm right bundle-branch block.? She was given aspirin, Zofran, morphine and Toradol.? Chest x-ray was read as.? Chest CTA was read as a follow. No pulmonary embolus. 2. Mild peripheral lower lung disease, which may be mild pulmonary edema and/or mild atelectasis/scarring.? The patient is being admitted to observation status on the date of service 03/07/2023 Hospital Course: patient is admitted with c/o of syncopal episode,? initial work up concerning for cardiac issues, will consult dip dyer and further recommendations to follow., patient cardiac echo is normal: Left ventricular chamber dimension is normal. ? Left
== END 2023-03-09 13:25 | disposition home or self-care (01) ==
LOC: ANHED 11:54 → ANH3MEDSUR 03-09 07:57
PROVIDERS: Nurse Practitioner; Admitting Provider Internal Medicine; Emergency Provider Emergency Medicine; PCP Family Medicine; Visit Provider Family Medicine
DX: R55 Syncope and collapse (principal); R07.9 Chest pain, unspecified; S80.211A Abrasion, right knee, initial encounter; W19.XXXA Unspecified fall, initial encounter; J84.9 Interstitial pulmonary disease, unspecified; F51.3 Sleepwalking [somnambulism]; F41.9 Anxiety disorder, unspecified; F32.A Depression, unspecified; R79.1 Abnormal coagulation profile; I51.89 Other ill-defined heart diseases; R94.31 Abnormal electrocardiogram [ECG] [EKG]; I45.10 Unspecified right bundle-branch block; F10.90 Alcohol use, unspecified, uncomplicated; E66.9 Obesity, unspecified; Z68.29 Body mass index [BMI] 29.0-29.9, adult; I35.1 Nonrheumatic aortic (valve) insufficiency; Z79.1 Long term (current) use of non-steroidal anti-inflammatories (NSAID); Z79.899 Other long term (current) drug therapy
CPT/HCPCS: 36415; 71045; 71275; 78452; 80053; 83605; 83690; 83735; 83880; 84443; 84484; 85025; 85380; 85610; 85730; 93005; 93017; 93880; 96372; 96374; 96375; 99285; A9270; A9502; C8929; G0378; J1650; J1885; J2270; J2405; J2785; Q9957; Q9967

== ENCOUNTER 2023-06-15 09:07 | Outpatient (CLI) | payer MEDICARE, SELFPAY ==
--- NOTE | 2023-06-29 13:57 | WPDSLEEPSTUD ---
Sleep Study Date of Study: 06/15/23 Ordering Provider: Awa Roque DO Interpreting Physician: Awa Roque DO Sleep Study Type: Split Polysomnogram Height: 1.75 m Weight: 99.79 kg Body Mass Index: 32.5 Neck Circumference (inches): 17 [place]: 6 Reason for Sleep Study History of sleep walking. Woke up one morning on floor with chest pain and unsure how she got there. Sleep History The patient is a 72-year-old female with anxiety and sleep walking min had a sleep study ordered for evaluation of multiple sleep disorders. The patient frequently awakens from sleep short of breath. She frequently awakens at night with heartburn, belching or cough. She frequently snores and is frequently loud enough that others complain. She frequently has trouble sleeping when she has a cold. She occasionally wakes up gasping for air throughout the night. She frequently has breathing problems at night observed by herself or others. She denies sweating excessively at night. She denies having heart palpitations or irregular heartbeats during the night. She rarely falls asleep during the day but never falls asleep while driving. She denies sleep paralysis and cataplexy. She denies having trouble at school or work due to sleepiness. She occasionally experiences vivid dreamlike scenes upon awakening or falling asleep. She denies feeling afraid of going to sleep. She occasionally has nightmares and frequently remembers her dreams. She frequently feels sad, depressed and anxious. She frequently has muscular tension. She denies noticing parts of her body jerk. She frequently kicks during the night. She frequently has crawling and aching feelings in legs and frequently has leg pain during the night. She denies grinding her teeth during sleep and denies awakening with morning jaw pain. She is rarely bothered by pain during the day but never awakened by pain during the night. She frequently wakes up feeling stiff in the morning. She frequently wakes up with sore or achy muscles. She frequently wakes up with pain in the neck, spine or other joints. The patient goes to bed at 9:00 p.m. on weekdays and between 9-10 p.m. on the weekends. It takes her few minutes to fall asleep. She wakes up 3 times throughout the night to urinate and get a drink. She is able to fall back asleep within a few minutes. She wakes up between 6-6:30 a.m. on weekdays and at 6:30 a.m. on the weekends. He typically gets 7 hours of sleep per night. She will stay in bed for 5 minutes after waking up in the morning. She currently lives alone. She denies consuming any caffeinated beverages within 2 hours of bedtime. She denies engaging in physical exercise before bedtime. She denies reading and watching television before falling asleep. She denies taking naps in the afternoon or the evening. She has 1 cup of coffee per day, 1 caffeinated soda and 2-3 glasses of caffeinated iced tea per day. She consumes 2-3 glasses of wine per day. She denies tobacco and recreational drug use. [facility]MERLY [facility] Past Medical History Medical History Depression History of depression Sleep walking Surgical History Surgical History History of appendectomy History of left knee surgery 1986 S/P tonsillectomy Family History Family History Father Acute myocardial infarction Mother No problems noted. Other Heart disease Social History Social History Social History: The patient has 1 daughter. She is . She works part-time at [employer]. She lives home alone. She is lifelong nonsmoker. Code status full code Smoking status: Never smoker Second hand tobacco smoke exposure: No Alcohol intake: current Drinks per week: 14 Alc
[2023-06-29 15:15] VITALS: BMI 32.5
== END 2023-06-16 07:37 | disposition home or self-care (01) ==
LOC: ANHCSM 09:09
PROVIDERS: PCP Family Medicine; Visit Provider Family Medicine
DX: G47.33 Obstructive sleep apnea (adult) (pediatric) (principal)
CPT/HCPCS: 95811

== ENCOUNTER 2023-10-06 08:54 | Outpatient (CLI) | payer MEDICARE, SELFPAY ==
--- NOTE | ~2023-10-06 | XR_ITS ---
EXAMINATION: XR shoulder RT min 2V DATE: 10/06/2023 09:10 INDICATION: Right shoulder pain. Fall. TECHNIQUE: 4 views of right shoulder were obtained. COMPARISON: None. FINDINGS: Bone alignment is normal. No fracture. There is mild osteoarthritis of glenohumeral joint a nd moderate osteoarthritis of the acromioclavicular joint. IMPRESSION: 1. Polyarticular osteoarthritis. Reviewed, dictated and finalized at location A. TAL INSPECTOR
== END 2023-10-06 08:55 ==
PROVIDERS: PCP Family Medicine; Visit Provider Nurse Practitioner
DX: M19.011 Primary osteoarthritis, right shoulder (principal)
CPT/HCPCS: 73030

== ENCOUNTER 2023-12-01 14:28 | Outpatient (CLI) | payer MEDICARE, SELFPAY ==
--- NOTE | ~2023-12-01 | MM_ITS ---
EXAMINATION: MM screening geovanna BI w [facility] HISTORY: Screening mammogram TECHNIQUE: Craniocaudal and mediolateral oblique 3-D tomosynthesis images were obtained and synthetic 2-D images were generated. CAD analysis was submitted and interpreted. COMPARISON: 08/20 sided on 23 diagnostic right mammogram and Limited right breast ultrasound examinati on, reported negative 07/27/2022, 08/22/2019 bilateral screening mammogram examinations BREAST PARENCHYMAL COMPOSITION: The breasts are heterogeneously dense, which may obscure small masses . FINDINGS: Occasional bilateral benign calcifications. There is no evidence of suspicious mass, calcif ication, or architectural distortion to suggest malignancy in either breast. There has been no suspic ious interval change. IMPRESSION: 1. No mammographic evidence of malignancy. 2. Recommend routine screening mammography in one year. BI-RADS Category 1: Negative Reviewed, dictated and finalized at location A.
== END 2023-12-01 14:29 | disposition home or self-care (01) ==
LOC: ANHIMG 14:29
PROVIDERS: PCP Family Medicine; Visit Provider Family Medicine
DX: Z12.31 Encounter for screening mammogram for malignant neoplasm of breast (principal)
CPT/HCPCS: 77063; 77067

== ENCOUNTER 2024-07-12 09:32 | Outpatient (CLI) | payer MEDICARE, SELFPAY ==
[2024-07-12 12:41] LABS: Basophils Percent Auto 0.5 % (0.2-1.2); Eosinophils Absolute Auto 0.1 K/mm3 (0-0.3); Eosinophils Percent Auto 2.5 % (0-4.4); Hematocrit 48.3 % (37.0-47.0); Hemoglobin 15.5 g/dL (12.0-15.0); Immature Granulocyte Absolute 0.02 K/mm3 (0.00-0.031); Immature Granulocyte Percent A 0.4 % (0-0.5); Lymphocytes Absolute Auto 1.58 K/mm3 (0.9-3.2); Lymphocytes Percent Auto 27.8 % (18.3-44.2); Mean Corpuscular HGB Conc 32.1 g/dl (32-36); Mean Corpuscular Hemoglobin 30.7 pg (26-34); Mean Corpuscular Volume 95.6 fl (80-100); Mean Platelet Volume 9.8 fl (7.4-10.4); Monocytes Absolute Auto 0.5 K/mm3 (0.1-0.6); Monocytes Percent Auto 8.8 % (2.6-8.5); Neutrophils Absolute Auto 3.4 K/mm3 (1.3-6.7); Platelet Count Result 175 k/mm3 (150-375); Red Blood Count 5.05 M/mm3 (4.2-5.4); Red Cell Distribution Width 13.2 % (11.5-14.5); White Blood Count 5.7 K/mm3 (4.5-10.0)
[2024-07-12 13:02] LABS: Alanine Aminotransferase 26 U/L (6-35); Albumin Level 4.5 g/dL (3.5-5.1); Alkaline Phosphatase 83 U/L (38-126); Anion Gap 3 mmol/L (4-12); Aspartate Amino Transferase 44 U/L (14-36); Bilirubin,Total 0.7 mg/dL (0.2-1.3); Blood Urea Nitrogen 15 mg/dL (7-17); Calcium 9.1 mg/dL (8.4-10.2); Carbon Dioxide 30 mmol/L (22-30); Chloride 102 mmol/L (98-107); Cholesterol 218 mg/dL (0-200); Estimated Glomerular Filt Rate > 60; Glucose 111 mg/dL (65-110); HDL Direct 79 mg/dL; Potassium 4.7 mmol/L (3.4-5.0); Sodium 135 mmol/L (137-145); Triglycerides 122 mg/dL (<150)
[2024-07-12 13:13] LABS: LDL Cholesterol Direct 111 mg/dL
[2024-07-12 13:15] LABS: Vitamin D 25 Hydroxy 22.3 ng/mL
[2024-07-12 14:04] LABS: Hemoglobin A1C 5.9 % (<5.7)
== END 2024-07-12 09:33 | disposition home or self-care (01) ==
PROVIDERS: PCP Internal Medicine; Visit Provider Clinical Nurse Specialist
DX: R07.9 Chest pain, unspecified (principal); R55 Syncope and collapse; R73.9 Hyperglycemia, unspecified; E55.9 Vitamin D deficiency, unspecified; R73.03 Prediabetes; F32.A Depression, unspecified; F41.9 Anxiety disorder, unspecified; G47.33 Obstructive sleep apnea (adult) (pediatric); Z13.220 Encounter for screening for lipoid disorders; Z13.29 Encounter for screening for other suspected endocrine disorder
CPT/HCPCS: 36415; 80053; 80061; 82306; 83036; 84443; 85025

== ENCOUNTER 2024-07-16 13:45 | Outpatient (CLI) | payer MEDICARE, SELFPAY ==
[2024-07-16 19:42] LABS: Basophils Percent Auto 0.6 % (0.2-1.2); Eosinophils Absolute Auto 0.1 K/mm3 (0-0.3); Eosinophils Percent Auto 1.8 % (0-4.4); Hematocrit 46.5 % (37.0-47.0); Hemoglobin 15.2 g/dL (12.0-15.0); Immature Granulocyte Absolute 0.02 K/mm3 (0.00-0.031); Immature Granulocyte Percent A 0.3 % (0-0.5); Lymphocytes Absolute Auto 1.94 K/mm3 (0.9-3.2); Lymphocytes Percent Auto 28.5 % (18.3-44.2); Mean Corpuscular HGB Conc 32.7 g/dl (32-36); Mean Corpuscular Hemoglobin 31.1 pg (26-34); Mean Corpuscular Volume 95.3 fl (80-100); Mean Platelet Volume 9.9 fl (7.4-10.4); Monocytes Absolute Auto 0.5 K/mm3 (0.1-0.6); Monocytes Percent Auto 6.6 % (2.6-8.5); Neutrophils Absolute Auto 4.2 K/mm3 (1.3-6.7); Neutrophils Percent Auto 62.2 % (45.5-73.1); Platelet Count Result 190 k/mm3 (150-375); Red Blood Count 4.88 M/mm3 (4.2-5.4); Red Cell Distribution Width 13.1 % (11.5-14.5); White Blood Count 6.8 K/mm3 (4.5-10.0)
== END 2024-07-16 13:46 | disposition home or self-care (01) ==
LOC: ANHGOSHLAB 13:46
PROVIDERS: PCP Internal Medicine; Visit Provider Clinical Nurse Specialist
DX: D58.2 Other hemoglobinopathies (principal)
CPT/HCPCS: 36415; 85025

== ENCOUNTER 2024-12-27 07:33 | Outpatient (CLI) | payer MEDICARE, SELFPAY ==
--- NOTE | ~2024-12-27 | MM_ITS ---
EXAMINATION: MM screening geovanna BI w [facility] HISTORY: Screening TECHNIQUE: Craniocaudal and mediolateral oblique 3-D tomosynthesis images were obtained and synthetic 2-D images were generated. CAD analysis was submitted and interpreted. COMPARISON: Comparison to multiple prior studies sequentially, with oldest reviewed study dated 08/22. BREAST PARENCHYMAL COMPOSITION: Dense: The breasts are heterogeneously dense, which may obscure small masses FINDINGS: There is no evidence of suspicious mass, calcification, or architectural distortion to sugg est malignancy in either breast. There has been no suspicious interval change. IMPRESSION: 1. No mammographic evidence of malignancy. 2. Recommend routine screening mammography in one year. BI-RADS Category 1: Negative Reviewed, dictated and finalized at location []
--- OUTSIDE RECORDS SUMMARY | 2024-12-27 07:37 | XMS_ITS | Referral Summary ---
Author Organization [facility] al Address [address] [place] [address] Care Team Providers Care Atomic Physics Teacher Name Role Phone Ayesha Richards MD Primary Care Provider [phone] Allergies Active Allergy Reactions Criticality Noted Date Comments Penicillins Swelling Medium 06/12/2013 Swelling Medications sertraline (ZOLOFT) 100 mg tablet Take 100 mg by mouth daily 08/31/2021 Active vitamin X75-qhmnm acid 0.5-1 mg tabletIndication s:Vitamin Deficiency Take 1 tablet by mouth daily 90 tablet 10/20/2021 Active Social History Tobacco Use Types Packs/Day Years Used Date Smoking Tobacco: Never Personal Safety Answer Date Recorded Getting School Help Needed Not on file 10/22 Comments No Sex and Gender Information Value Date Recorded Sex Assigned at Not on file 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 Gender Identity Not on file Sexual Orientation Not on file Last Filed Vital Signs Vital Sign Reading Time Taken Comments Blood Pressure 132/81 10/20/2021 3:10 PM CDT Pulse 83 10/20/2021 3:10 PM CDT Temperature 36.7 C (98.1 F) 10/20/2021 10:35 AM CDT Respiratory Rate 18 10/20/2021 3:10 PM CDT Oxygen Saturation 95% 10/20/2021 3:10 PM CDT Inhaled Oxygen Concentration - - Weight 99.8 kg (220 lb) 10/20/2021 10:35 AM CDT Height 175.3 cm (5' 9 ) 10/20/2021 10:35 AM CDT Body Mass Index 32.49 10/20/2021 10:35 AM CDT Plan of Treatment Not on file Insurance [facility] MEDICARE [employer] MEDICARE HMO Care Teams Atomic Physics Teacher Relationship Specialty Start Date End Date Ayesha Richards MD PCP - General Family Medicine 10/20/21
--- OUTSIDE RECORDS SUMMARY | 2024-12-27 07:37 | XMS_ITS | Clinical Summary ---
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 Gender Identity Not on file Sexual Orientation Not on file Plan of Treatment Health Maintenance Due Date Last Done Comments DEXA Bone Density 1950 Hepatitis C Virus (HCV) Screening 1950 Colonoscopy 12/20/1995 Colorectal Cancer Screening 12/20/1995 Cologuard 2000 Immunochemical Fecal Occult Blood 2000 Mammogram 2000 Zoster Immunization (1 of 2) 2000 Influenza Immunization (#1) 04/08/2024/2 04/2020, 05/29/2018, 06/08/2017, Additional history exists SARS-COV-2 Immunization ( season) 2024 Respiratory Syncytial Virus (RSV) Immunization (Adult) (1 - 1-dose 75+ series) 2025 DTaP/Tdap/Td Immunization Discontinued 01/16/2017, 03/2015 TdaP Immunization Completed 01/16/2017, 05/15/2015 Pneumococcal Immunization (50+ years) Completed 05/29/2018, 06/08/2017, 05/26/2017, Additional history exists Hepatitis B Immunization Aged Out No longer eligible based on patient's age to complete this topic Meningococcal Immunization (ACWY) Aged Out No longer eligible based on patient's age to complete this topic Rotavirus Immunization Aged Out No lo nger eligible based on patient's age to complete this topic
--- OUTSIDE RECORDS SUMMARY | 2024-12-27 07:37 | XMS_ITS | Clinical Summary ---
Author Organization [facility] al Address [address] [place] [address] Care Team Providers Care Customer Greeter Name Role Phone Ayesha Richards MD Primary Care Provider [phone] Allergies Active Allergy Reactions Criticality Noted Date Comments Penicillins Swelling Medium 06/12/2013 Swelling Medications sertraline (ZOLOFT) 100 mg tablet Take 100 mg by mouth daily 08/31/2021 Active vitamin T43-jjswm acid 0.5-1 mg tabletIndication s:Vitamin Deficiency Take 1 tablet by mouth daily 90 tablet 10/20/2021 Active Surgical History Surgery Date Site/Laterality Comments KNEE SURGERY 08/08/1986 - 08/07/1987 Left Medical History Medical History Date Comments Depression Social History Tobacco Use Types Packs/Day Years Used Date Smoking Tobacco: Never Personal Safety Answer Date Recorded Getting School Help Needed Not on file 10/22 Comments No Sex and Gender Information Value Date Recorded Sex Assigned at Not on file 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 Gender Identity Not on file Sexual Orientation Not on file Obstetrics History Last Filed Vital Signs Vital Sign Reading [...] 10/20/2021 10:35 AM CDT Plan of Treatment Health Maintenance Due Date Last Done Comments Breast Cancer Screening-Mammogram 1950 Colon Cancer Screening-Colonoscopy 1950 Depression Screening 1950 Fall Risk Assessment 1950 Hepatitis C Screening 1950 Osteoporosis Screening-Bone Density Scan 1950 Hepatitis B Screening 1968 Zoster Vaccine (1 of 2) 2000 Well Visit 65+ 12/20/2015 Covid-19 Vaccine (4 2023-2 5 season) 2024 11/29/2020, 10/29/2020, 10/09/2020 Influenza Vaccine (#1) 2024 , 08/05/2020, 05/29/2018, Additional history exists DTaP/Tdap/Td Vaccine (3 - Td or Tdap) 01/16/2027 01/16/2017, 05/15/2015 Pneumococcal vaccine 65+ Completed 018, 06/08/2017, 05/26/2017, Additional history exists Insurance [employer] MEDICARE PPO [employer] MEDICARE HMO Care Teams Customer Greeter Relationship Specialty Start Date End Date Ayesha Richards MD PCP - General Family Medicine 10/20/21
--- OUTSIDE RECORDS SUMMARY | 2024-12-27 07:37 | XMS_ITS | Clinical Summary ---
Author Organization [facility] [employer] Address [address] [place] [address] [place] [address] Care Team Providers Care Telegraph Repeater Technician Name Role Phone Bayron Shahid MD Primary Care Provider [phone] Source Comments [facility] [employer],non-owned Affiliates and Associated Physician Practices is amultiple site organization consisting of ambulatory clinics and hospital sitesin [place], [place], [place] and [place]. This disclosure is being madepursuant to the Care Everywhere program and may not contain all information available regarding this patient. Last updated 18.[facility] [employer] Allergies Active Allergy Reactions Criticality Noted Date Comments Penicillins Shortness of Breath,Swelling High 2017 Medications * Be aware that medications may not be up to date on this document. Alwaysverify current medications with the patient. 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 Gender Identity Not on file Sexual Orientation Not on file Last Filed Vital Signs Vital Sign Reading Time Taken Comments Blood Pressure - - Pulse - - Temperature - - Respiratory Rate - - Oxygen Saturation - - Inhaled Oxygen Concentration - - Weight 88.5 kg (195 lb) 02/13/2018 2:20 PM CDT Height 175.3 cm (5' 9 ) 02/13/2018 2:20 PM CDT Body Mass Index 28.8 02/13/2018 2:20 PM CDT Plan of Treatment Health Maintenance Due Date Last Done Comments BONE DENSITY TESTING 1950 COLOGUARD (AGES 45-75) - COL ON CA SCREENING 1950 COLON MONITORING 1950 COLONOSCOPY - COLON CA SCREENING 1950 CT COLONOGRAPHY - COLON CA SCREENING 1950 Colorectal Cancer Screening 1950 FIT - COLON CA SCREENING 1950 FLEX SIG - COLON CA SCREENING 1950 LIPID TESTING 1950 MAMMOGRAM 1950 HEPATITIS C SCREENING 12/14/1968 DTAP/TDAP/TD VACCINES (1 - Tdap) 1969 PNEUMOCOCCAL VACCINE 50+ (1 of 1 - PCV) 2000 ZOSTER VACCINE (1 of 2) 2000 SCREENING FOR DIABETES 02/13/2018 COVID-19 VACCINE (1 - 2023-2 5 season) 2024 DEPRESSION SCREENING 08/08/2024 INFLUENZA VACCINE (Season Ended) 2025 Respiratory Syncytial Virus (RSV) Vaccine Pt: or over 60 yrs (1 - 1-dose 75+ series) 2025 HEPATITIS B VACCINE Aged Out No longe r eligible based on patient's age to complete this topic HIB VACCINE Aged Out No longer eligi ble based on patient's age to complete this topic HPV VACCINE Aged Out No longer eligi ble based on patient's age to complete this topic MENINGOCOCCAL (Group B) VACC INE SHARED DECISION-MAKING Aged Out No longer eligibl e based on patient's age to complete this topic MENINGOCOCCAL GROUPS A/C/Y/W VACCINE Aged Out No longer eligible b ased on patient's age to complete this topic Insurance [facility] [place] [address] Care Teams Telegraph Repeater Technician Relationship Specialty Start Date End Date Bayron Shahid MD PCP - General Internal Medicine 01/27/18
--- OUTSIDE RECORDS SUMMARY | 2024-12-27 07:37 | XMS_ITS | Data Portability ---
Author Organization ELAN Charley YUEN Address [address] [facility] [place] [place] [address] Care Team Providers Care Membership Advisor Name Role Phone JENNIFER RIVAS Primary Care Provider Assessment Encounter Date Assessment Date Assessment LastModified by Organization Details LastModified Time 07/14/2020 07/14/2020 encouraged to get a flu shot. [email or web address] Not available 07/14/2020 15:24:36 Plan of Treatment Reminders Order Date Submit Date Provider Last Modified By Organization Details Last Modified Time Details Appointments None recorded. Lab CBC w/ auto diff 2020 021 [facility], [address] [place] [address], [address], [place], [address], 08:20:12 CMP, serum or plasma 2020 021 [facility], [address] [place] [address], [address], [place], [address], 08:20:13 lipid panel, serum 2020 021 [facility], [address] [place] [address], [address], [place], [address], 08:20:14 HbA1c (hemoglob in A1c), blood 2020 021 [facility], [facility], [address], [place], [address], 14:12:01 vitamin D, 25-hydrox y, total, serum 2020 021 [facility], [address] [facility], [address], [place], [address], 1 08:20:15 Referral podiatris t referral 2018 019 [facility], [address], [place], [address], 9 11:55:20 Procedures None recorded. Surgeries None recorded. Imaging MAMMO, screening , bilateral 2020 021 [facility], [address] [place] [address], [address], 1 15:33:16 MAMMO, screening , bilateral [address], [address] [place] [address], [address], 9 16:32:24 MAMMO, screening , bilateral 2018 019 [facility], [address] [place] [address], [address], 0 12:48:26 Medication Orders sertralin e 100 mg tablet 2019 020 [facility], [address] [place], [address], 0 15:20:37 Vitamin D2 1,250 mcg (50,000 unit) capsule 2019 [facility]20 [facility] [place], [address], 0 15:15:09 alprazola m 0.5 mg tablet 2019 020 [facility], [address] [place], [address], 1 14:16:14 sertralin e 100 mg tablet 2019 020 [facility], [address] [place], [address], 0 10:25:32 meloxicam 15 mg tablet 2018 019 sdevriesma [facility], [address] [place], [address], 0 10:17:21 buspirone 10 mg tablet 2018 019 [email or web address] [facility], [address] [place], [address], 9 15:56:06 Patient TargetsNo targets recorded. Patient Instructions Encounter Date Encounter Id Patient Instructions Last Modified By Organization Details Last Modified Time 11/22/2018 [id number] mammogram: about this test [email or web address] Not available 11/22/2018 10:58:59 05/17/2019 [id number] influenza (flu) vaccine: care instructions [email or web address] Not available 05/17/2019 16:19:09 mammogram: about this test [email or web address] Not available 05/17/2019 16:14:58 hip pain: care instructions [email or web address] Not available 05/17/2019 16:19:09 Reason for Referral Licensed Clinical Social Worker Referral for Bila teral foot joint pain Referring Physician: Bettye Hopson, Family Medicine, Encounter Date: 05/17/2019 Results Created Date Observation Date Name Description Value Unit Range Abnormal Flag Note LastModifiedBy Organization Detail LastModifiedTime 07/09/20 21 07/10/2021 CBC WITH DIFFE RENTI AL/PL ATELE T WBC 6.3 x10e3 /uL 3.4-10 .8 Not Available [facility] ([facility]) [address] [facility], [place], [address], 07/10/2021 08:20:12 07/09/20 21 07/10/2021 CBC WITH DIFFE RENTI AL/PL ATELE T RBC 4.81 x10e6 /uL 3.77-5 .28 Not Available [facility] ([facility]) [address] [facility], [place], [address], 07/10/2021 08:20:12 07/09/20 21 07/10/2021 CBC WITH DIFFE RENTI AL/PL ATELE T hemoglobin 14.9 g/dL 11.1-1 5.9 Not Available [facility] ([facility]) [address] [facility], [place], [address], 07/10/2021 08:20:12 07/09/20 21 07/10/2021 CBC WITH DIFFE RENTI AL/PL ATELE T hematocrit 43.9 % 34.0-4 6.6 Not Available [facility] ([facility]) [address] [facility], [place], [address], 07/10/2021 08:20:12 07/09/20 21 07/10/2021 CBC WITH DIFFE RENTI AL/PL ATELE T MCV 91 fL 79-97 Not Available [facility] ([facility]) [address] [facility], [place], [address], 07/10/2021 08:20:12 07/09/20 21 07/10/2021 CBC WITH DIFFE RENTI AL/PL ATELE T MCH 31.0 pg 26.6-3 3.0 Not Available [facility] ([facility]) [address] [facility], [place], [address], 07/10/2021 08:20:12 07/09/20 21 07/10/2021 CBC WITH DIFFE RENTI AL/PL ATELE T MCHC 33.9 g/dL 31.5-3 5.7 Not Available [facility] ([facility]) [address] [place], [address], 07/10/2021 08:20:12 07/09/20 21 07/10/2021 CBC WITH DIFFE RENTI AL/PL ATELE T RDW 13.5 % 11.7-1 5.4 Not Available [facility] ([facility]) [address] [facility], [place], [address], 07/10/2021 08:20:12 07/09/20 21 07/10/2021 CBC WITH DIFFE RENTI AL/PL ATELE T platelets 172 x10e3 /uL 150-45 0 Not Available [facility] ([facility]) [address] [facility], [place], [address], 07/10/2021 08:20:12 07/09/20 21 07/10/2021 CBC WITH DIFFE RENTI AL/PL ATELE T neutrophils 65 % not estab. Not Available [facility] ([facility]) [address] [facility], [place], [address], 07/10/2021 08:20:12 07/09/20 21 07/10/2021 CBC WITH DIFFE RENTI AL/PL ATELE T lymphs 25 % not estab. Not Available [facility] ([facility]) [address] [facility], [place], [address], 07/10/2021 08:20:12 07/09/20 21 07/10/2021 CBC WITH DIFFE RENTI AL/PL ATELE T monocytes 8 % not estab. Not Available [facility] ([facility]) [address] [facility], [place], [address], 07/10/2021 08:20:12 07/09/20 21 07/10/2021 CBC WITH DIFFE RENTI AL/PL ATELE T eos 2 % not estab. Not Available [facility] ([facility]) [address] [facility], [place], [address], 07/10/2021 08:20:12 07/09/20 21 07/10/2021 CBC WITH DIFFE RENTI AL/PL ATELE T basos 0 % not estab. Not Available [facility] ([facility]) [address] [facility], [place], [address], 07/10/2021 08:20:12 07/09/20 21 07/10/2021 CBC WITH DIFFE RENTI AL/PL ATELE T immature cells PAINTER AND DECORATOR Not Available [facility] ([facility]) [address] [place], [address], 07/10/2021 08:20:12 07/09/20 21 07/10/2021 CBC WITH DIFFE RENTI AL/PL ATELE T neutrophils (absolute) 4.1 x10e3 /uL 1.4-7. 0 Not Available [facility] ([facility]) [address] [place], [address], 07/10/2021 08:20:12 07/09/20 21 07/10/2021 CBC WITH DIFFE RENTI AL/PL ATELE T lymphs (absolute) 1.6 x10e3 /uL 0.7-3. 1 Not Available [facility] ([facility]) [address] [place], [address], 07/10/2021 08:20:12 07/09/20 21 07/10/2021 CBC WITH DIFFE RENTI AL/PL ATELE T monocytes(ab solute) 0.5 x10e3 /uL 0.1-0. 9 Not Available [facility] ([facility]) [address] [place], [address], 07/10/2021 08:20:12 07/09/20 21 07/10/2021 CBC WITH DIFFE RENTI AL/PL ATELE T eos (absolute) 0.1 x10e3 /uL 0.0-0. 4 Not Available [facility] ([facility]) [address] [place], [address], 07/10/2021 08:20:12 07/09/20 21 07/10/2021 CBC WITH DIFFE RENTI AL/PL ATELE T baso (absolute) 0.0 x10e3 /uL 0.0-0. 2 Not Available [facility] ([facility]) [address] [facility], [place], [address], 07/10/2021 08:20:12 07/09/20 21 07/10/2021 CBC WITH DIFFE RENTI AL/PL ATELE T immature granulocytes 0 % not estab. Not Available [facility] ([facility]) [address] [facility], [place], [address], 07/10/2021 08:20:12 07/09/20 21 07/10/2021 CBC WITH DIFFE RENTI AL/PL ATELE T immature grans (abs) 0.0 x10e3 /uL 0.0-0. 1 Not Available [facility] ([facility]) [address] [facility], [place], [address], 07/10/2021 08:20:12 07/09/20 21 07/10/2021 CBC WITH DIFFE RENTI AL/PL ATELE T NRBC PAINTER AND DECORATOR Not Available [facility] ([facility]) [address] [facility], [place], [address], 07/10/2021 08:20:12 07/09/20 21 07/10/2021 CBC WITH DIFFE RENTI AL/PL ATELE T hematology comments: PAINTER AND DECORATOR Not Available [facility] ([facility]) [address] [facility], [place], [address], 07/10/2021 08:20:12 07/09/20 21 07/10/2021 COMP. METAB OLIC PANEL (14) glucose 101 mg/dL 65-99 above high normal Not Available [facility] ([facility]) [address] [facility], [place], [address], 07/10/2021 08:20:13 07/09/20 21 07/10/2021 COMP. METAB OLIC PANEL (14) BUN 14 mg/dL 8-27 Not Available [facility] ([facility]) [address] [facility], [place], [address], 07/10/2021 08:20:13 07/09/20 21 07/10/2021 COMP. METAB OLIC PANEL (14) creatinine 0.84 mg/dL 0.57-1 .00 Not Available [facility] ([facility]) [address] [facility], [place], [address], 07/10/2021 08:20:13 07/09/20 21 07/10/2021 COMP. METAB OLIC PANEL (14) eGFR if nonafricn AM 71 mL/mi n/1.7 3 >59 Not Available [facility] ([facility]) [address] [facility], [place], [address], 07/10/2021 08:20:13 07/09/20 21 07/10/2021 COMP. METAB OLIC PANEL (14) eGFR if africn AM 81 mL/mi n/1.7 3 >59 In accor dance with recom menda tiartem from the NKF-A SN Task force , [facility] is in the proce ss of updat ing its eGFR calcu latio n to the 2020 CKD-E PI creat inine equat ion that estim ates kidne y funct ion witho ut a race varia ble. Not Available [facility] ([facility]) [address] [facility], [place], [address], 07/10/2021 08:20:13 07/09/20 21 07/10/2021 COMP. METAB OLIC PANEL (14) BUN/creatini ne ratio 17 12-28 Not Available [facility] ([facility]) [address] [facility], [place], [address], 07/10/2021 08:20:13 07/09/20 21 07/10/2021 COMP. METAB OLIC PANEL (14) sodium 141 mmol/ L 134-14 4 Not Available [facility] ([facility]) [address] [place], [address], 07/10/2021 08:20:13 07/09/20 21 07/10/2021 COMP. METAB OLIC PANEL (14) potassium 3.9 mmol/ L 3.5-5. 2 Not Available [facility] ([facility]) [address] [facility] [place], [address], 07/10/2021 08:20:13 07/09/20 21 07/10/2021 COMP. METAB OLIC PANEL (14) chloride 105 mmol/ L 96-106 Not Available [facility] ([facility]) [address] [facility] [place], [address], 07/10/2021 08:20:13 07/09/20 21 07/10/2021 COMP. METAB OLIC PANEL (14) carbon dioxide, total 22 mmol/ L 20-29 Not Available [facility] ([facility]) [address] [facility] [place], [address], 07/10/2021 08:20:13 07/09/20 21 07/10/2021 COMP. METAB OLIC PANEL (14) calcium 9.1 mg/dL 8.7-10 .3 Not Available [facility] ([facility]) [address] [place], [address], 07/10/2021 08:20:13 07/09/20 21 07/10/2021 COMP. METAB OLIC PANEL (14) protein, total 6.6 g/dL 6.0-8. 5 Not Available [facility] ([facility]) [address] [place], [address], 07/10/2021 08:20:13 07/09/20 21 07/10/2021 COMP. METAB OLIC PANEL (14) albumin 4.4 g/dL 3.8-4. 8 Not Available [facility] ([facility]) [address] [place], [address], 07/10/2021 08:20:13 07/09/20 21 07/10/2021 COMP. METAB OLIC PANEL (14) globulin, total 2.2 g/dL 1.5-4. 5 Not Available [facility] ([facility]) [address] [facility] [place], [address], 07/10/2021 08:20:13 07/09/20 21 07/10/2021 COMP. METAB OLIC PANEL (14) A/G ratio 2.0 1.2-2. 2 Not Available [facility] ([facility]) [address] [facility] [place], [address], 07/10/2021 08:20:13 07/09/20 21 07/10/2021 COMP. METAB OLIC PANEL (14) bilirubin, total 0.3 mg/dL 0.0-1. 2 Not Available [facility] ([facility]) [address] [facility] [place], [address], 07/10/2021 08:20:13 07/09/20 21 07/10/2021 COMP. METAB OLIC PANEL (14) alkaline phosphatase 81 IU/L 44-121 Ple ase note refer ence inter oc ambrocio e Not Available [facility] ([facility]) [address] [facility] [place], [address], 07/10/2021 08:20:13 07/09/20 21 07/10/2021 COMP. METAB OLIC PANEL (14) AST (SGOT) 20 IU/L 0-40 Not Available [facility] ([facility]) [address] [facility] [place], [address], 07/10/2021 08:20:13 07/09/20 21 07/10/2021 COMP. METAB OLIC PANEL (14) ALT (SGPT) 22 IU/L 0-32 Not Available [facility] ([facility]) [address] [facility] [place], [address], 07/10/2021 08:20:13 07/09/20 21 07/10/2021 LIPID PANEL W/ CHOL/ HDL RATIO cholesterol, total 215 mg/dL 100-19 9 above high normal Not Available [facility] ([facility]) [address] [facility], [place], [address], 07/10/2021 08:20:14 07/09/20 21 07/10/2021 LIPID PANEL W/ CHOL/ HDL RATIO triglyceride s 141 mg/dL 0-149 Not Available [facility] ([facility]) [address] [place], [address], 07/10/2021 08:20:14 07/09/20 21 07/10/2021 LIPID PANEL W/ CHOL/ HDL RATIO HDL cholesterol 75 mg/dL >39 Not Available [facility] ([facility]) [address] [facility], [place], [address], 07/10/2021 08:20:14 07/09/20 21 07/10/2021 LIPID PANEL W/ CHOL/ HDL RATIO VLDL cholesterol ajay 24 mg/dL 5-40 Not Available [facility] ([facility]) [address] [facility], [place], [address], 07/10/2021 08:20:14 07/09/20 21 07/10/2021 LIPID PANEL W/ CHOL/ HDL RATIO LDL chol calc ([facility]) 116 mg/dL 0-99 above high normal Not Available [facility] ([facility]) [address] [place], [address], 07/10/2021 08:20:14 07/09/20 21 07/10/2021 LIPID PANEL W/ CHOL/ HDL RATIO comment: PAINTER AND DECORATOR Not Available [facility] ([facility]) [address] [place], [address], 07/10/2021 08:20:14 07/09/20 21 07/10/2021 LIPID PANEL W/ CHOL/ HDL RATIO T. chol/HDL ratio 2.9 ratio 0.0-4. 4 T. Chol/ HDL Ratio Men Women 1/2 Avg.R isk 3.4 3.3 Avg.R isk 5.0 4.4 2X Avg.R isk 9.6 7.1 3X Avg.R isk 23.4 11.0 Not Available [facility] ([facility]) [address] [facility], [place], [address], 07/10/2021 08:20:14 07/09/20 21 07/10/2021 VITAM IN D, 25-HY DROXY vitamin D, 25-hydroxy 18.6 NG/mL 30.0-1 00.0 below low normal Vitam in D defic iency has been defin ed by the Insti tute of Medic ine and an Endoc rine Socie ty pract ice guide line as a level of serum 25-OH vitam in D less than 20 ng/mL (1,2) . The Endoc rine Socie ty went on to furth er defin e vitam in D insuf ficie ncy as a level betwe en 21 and 29 ng/mL (2). 1. IOM (Inst itute of Medic ine). 2009. Dieta ry refer ence marichuy es for calci um and D. Jl chavez [place]: The [facility] Acade [facility] Press . 2. Felipe blake MF, Cathy xie [place], Kathryn off-F errar i RIGGS, et al. Evalu ation , treat ment, and preve ntion of vitam in D defic iency : an Endoc rine Socie ty clini ajay pract ice guide line. JCEM. 2010; 96(7) :1911 -30. Not Available [facility] ([facility]) [address] [facility], [place], [address], 07/10/2021 08:20:15 07/09/20 21 07/13/2021 VERBA L ORDER see below: Commen t: Pleas e provi de reque sted infor kylee johns and fax to [phone]. The [place] Code of [place] Regul ation s requi res a writt en and kristi d reque st be forwa rded to a labor atory follo wing a verba l order of a labor atory test. Pleas e mumtaz t us to meet this requi remen t and to compl ete our recor ds. Date: ICD- Diagn osis Code( s):__ _ Physi piotr or Autho rized Desig nee:_ _ Pleas e Print Physi piotr or Autho rized Desig nee Signa ture: Your Signa ture Confi maury Your Order Of The Test( s) Liste d Not Available [facility] ([facility]) [address] [place], [address], 07/13/2021 16:10:38 07/09/2007/13/2021 VERBA L ORDER additional test(s) requested Commen t: Test( s) added per Sanket durand at [facility] 07-13 Logge d by Concepcion Huntley [facility] Test# [id number] 3 Hemog lobin A1c Diagn osis Codes Provi ded Z00.0 0 Not Available [facility] ([facility]) [address] [place], [address], 07/13/2021 16:10:38 07/09/20 21 07/14/2021 HEMOG LOBIN A1C hemoglobin A1C 5.9 % 4.8-5. 6 above high normal Predi abete s: 5.7 - 6.4 Diabe malik: >6.4 Glyce ernie contr ol for adult s with diabe malik: <7.0 Not Available [facility] ([facility]) [address] [facility], [place], [address], 07/14/2021 14:12:01 07/09/20 21 07/14/2021 WRDARVIN EN AUTHO KORINT ION written authorizatio n Commen t Mabel en Autho rizat ion Recei cleve. Autho rizat ion recei cleve from ASHLI DURAND 07-14 Logge d by Eylsia Sahni n Not Available [facility] ([facility]) [address] [facility], [place], [address], 07/14/2021 14:12:02 08/22/19 20 08/22/2019 MAMMO , scree august, bilat eral No observ ation record ed. [facility] [address] [place] [address] [address] [facility], [place], [address], 08/30/2019 14:20:57 02/13/20 21 02/12/2021 US, doppl er, venou s No observ ation record ed. [address] [place] [address], [address], 02/13/2021 10:23:49 Result Notes None recorded. Problems Name Problem SNOMED Code Status Onset Date Resolution Date Notes Provider Name and Address Organization Details Recorded Time Depressive disorder 73512042 Active 2018 DAIN Mcmahan NP Attn: Camilla ng,[address] [place], [address], [facility] 9 14:18:03 Vitamin D deficiency 34610791 Active 2018 ADIN Mcmahan NP Attn: Camilla ng,[address] [place], [address], [facility] 9 14:38:20 Hyperlipidemia 40673941 Active 2020 RALPH GALINDO Attn: Camilla ng,[address] [facility] [place], [address], [facility] - [facility] 16:14:58 Problem Notes None recorded. Procedures Surgical History Date Name Laterality Status Provider Name and Address Organization Details Recorded Time Reconstruction knee completed Maty Pack [place] 05/29/2018 11:35:24 Appendectomy completed Ashlyn Pack [place] 05/29/2018 11:35:29 Imaging Results Imaging Date Name Status LastModified by Organiz ation Details LastModified Time 08/22/2019 MAMMO, screening, bilateral completed [facility] ([facility]) [address] [facility] [address], [place], [address], 08/30/2019 14:20:57 02/12/2021 US, doppler, venous completed [facility] [address] [facility] [address], [place], [address], 02/13/2021 10:23:49 Procedure Notes None recorded. Medical Equipment None Reported. Allergies Allergen ID Allergen Name Allergen Category Reaction Reaction Severity Criticality Documentation Date Start Date Code Code System Note Provider Name and Address Organization Details Recorded Time 356022 Product containin g penicilli n (product) medicatio n anaphylax is severe Not available 05/29/2018 67728 8001 SNOMED SY Silva, [place] - [place] 8 11:29:17 243194 almond allergeni c extract food eye swelling severe Not available 08/09/2018 59533 7 RxNorm SY Lewis, [place] - [facility] 9 12:11:11 Medications Name Sig Start Date Stop Date Status Note LastModified by Organization Details LastModified Time azithromy chon 250 mg tablet 05/29 completed Not Available Not Available Not Available meloxicam 15 mg tablet Take 1 tablet every day by oral route. 11/29 completed Not Available Not Available Not Available sertralin e 100 mg tablet Take 1 tablet by mouth once daily 2021 active Not Available Not Available Not Avai lable prednison e 5 mg tablet 05/29 completed Not Available Not Available Not Available meloxicam 7.5 mg tablet 05/29 completed Not Available Not Available Not Available alprazola m 0.5 mg tablet TAKE 1 TABLET BY MOUTH THREE TIMES DAILY if needed 07/09 completed Not Available Not Available Not Available doxycycli ne monohydra te 100 mg capsule Take 1 capsule twice a day by oral route. 07/09 completed Not Available Not Available Not Available erythromy chon 5 mg/gram (0.5 %) eye ointment 05/29 completed Not Available Not Available Not Available buspirone 10 mg tablet Take 1 tablet twice a day by oral route. 05/17 completed Not Available Not Available Not Available polymyxin B sulfate 10,000 unit-trim ethoprim 1 mg/mL eye drops INSTILL 1 DROP INTO AFFECTED EYE(S) BY OPHTHALM IC ROUTE EVERY 4 HOURS x 7 days 10/10 completed Not Available Not Available Not Available hydrocort isone 2.5 % topical cream 05/29 completed Not Available Not Available Not Available Vitamin D2 1,250 mcg (50,000 unit) capsule TAKE 1 CAPSULE BY MOUTH ONCE A WEEK 07/14 completed Upsets patients stomach Not Available Not Available Not Available buspirone 15 mg tablet Take 1 tablet 3 times a day by oral route as needed. 05/17 completed Not Available Not Available Not Available cholecalc iferol (vitamin D3) 1,250 mcg (50,000 unit) capsule Take 1 capsule every week by oral route with meals for 90 days. active Not Available Not Available No t Available ID NOW COVID-19 Test Kit DIRECTED 07/09 completed Not Available Not Available Not Available Fluzone High-Dose Quad 2020-21 (PF) 240 mcg/0.7 mL IM syringe PHARMACY ADMINIST ERED 07/09 completed Not Available Not Available Not Available Vitals Date Recorded Body height Oxygen saturation Oxygen saturation in Arterial blood by Pulse oximetry Heart rate Body mass index (BMI) Body weight Systolic blood pressure Diastolic blood pressure Provider Name and Address Organization Details Last Updated DateTime 9 172.72 cm 94 % 94 % 90 /min 32.3 kg/m2 00428.6 8 g 122 mm[Hg] 86 mm[Hg] Carlie Quiroz MA [place] - [facility] 9 10:32:02 Date Recorded Body height Body mass index (BMI) Body weight Oxygen saturation Oxygen saturation in Arterial blood by Pulse oximetry Heart rate Systolic blood pressure Diastolic blood pressure Provider Name and Address Organization Details Last Updated DateTime 9 172.72 cm 32 kg/m2 07263.8 g 94 % 94 % 81 /min 128 mm[Hg] 84 mm[Hg] Jie Wang [facility] 9 15:45:05 Date Recorded Body height Body mass index (BMI) Body weight Oxygen saturation Oxygen saturation in Arterial blood by Pulse oximetry Heart rate Systolic blood pressure Diastolic blood pressure Provider Name and Address Organization Details Last Updated DateTime 1 175.26 cm 33.1 kg/m2 584390. 69 g 97 % 97 % 85 /min 130 mm[Hg] 78 mm[Hg] Oriana Vazquez MA [facility] 1 15:08:53 Social History Question Answer Notes LastModified by Organizat ion Details LastModified Time Tobacco Smoking Status Never Smoker Ashlyn Pack MA [facility] 05/29/2018 11:31:56 Do You Have An Advance Directive? No Information not available 05/29/2018 What Is Your Level Of Caffeine Consumption? Moderate 1 Cup Coffee Daily Information not available 07/14/2020 How Much Tobacco Do You Chew? None Information not available 05/29/2018 What Type Of Diet Are You Following? REGULAR Information not available 05/29/2018 Which Illicit Or Recreational Drugs Have You Used? No Information not available 05/29/2018 Education 2 Year College Information not available 05/29/2018 Swimming/diving Yes Informati on not available 05/29/2018 Hard Of Hearing Or Deaf In One Or Both Ears? No Information not available 05/29/2018 Legally Blind In One Or Both Eyes? No Information not available 05/29/2018 Live Alone Or With Others? Alone Information not available 05/29/2018 What Was The Date Of Your Most Recent Tobacco Screening? 07/09/2021 Information not available 07/09/2021 How Many Children Do You Have? 1 Information not available 05/29/2018 Do You Use Protection During Sex? Usually Information not available 05/29/2018 Seat Belts Used Routinely Yes Information not available 05/29/2018 Are You Sexually Active? No Information not available 05/29/2018 Smoke Alarm In Home Yes Information not available 05/29/2018 At What Age Did You Start Smoking Tobacco? 0 N/a Information not available 07/14/2020 Are You Passively Exposed To Smoke? No Information not available 05/29/2018 How Much Tobacco Do You Smoke? No Information not available 11/30/2019 General Stress Level High Information not available 05/29/2018 Do You Use Sunscreen Routinely? Yes Information not available 05/29/2018 On What Date Was Tobacco Cessation Counseling Provided? 11/30/2019 Information not available 11/30/2019 How Many Years Have You Smoked Tobacco? 0 Information not available 11/30/2019 Sex: Unknown Functional Status Question Answer Note LastModified by Organizat ion Details LastModified Time Do you use any illicit or recreational drugs? No Information not available 07/09/2021 What is your level of alcohol consumption? Occasional Concerned about how wine intake at night Information not available 07/09/2021 Do you or have you ever used smokeless tobacco? Never used smokeless tobacco Information not available 11/30/2019 Are you currently employed? Yes Information not available 05/29/2018 Are you able to care for yourself? 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 Never used electronic cigarettes Information not available 11/30/2019 What is your exercise level? Moderate Information not available 05/29/2018 Mental Status None recorded. Family History Relationship Description Onset Age of this Age Resolved Age Notes LastModified by Organization Details LastModified Time Father Heart disease [email or web address] Not available 2017 11:30:29 Father Myocardial infarction [email or web address] Not available 05/29 11:31:48 Mother Family history of stroke [place] Not available 2017 11:30:39 Brother Heart disease [place] Not available 2017 11:30:48 Paternal Uncle Myocardial infarction [place] Not available 05/29 11:31:48 Medical History Condition Response Coronary Artery Disease N Other N High Blood Pressure N Atrial Fibrillation N Thyroid Problems N Kidney or Bladder Problems N GI Problems N Depression N COPD N Blood Clots N Skin Problems N Eating Disorder N Anemia N Heart Attack ([place]) N Anxiety Disorder Y Diabetes N Muscle, Joint, or Bone Problems N Seizures/Epilepsy N Acid Reflux (GERD) N Cancer N Stroke N Asthma N Allergies N ADHD N Substance Abuse N High Cholesterol N Hepatitis N Liver Disease N Schizophrenia N Headaches N Heart Failure N Osteoporosis Y Gynecological History Statement/Question Response Date of Last Pap Smear Current Control Method Menopause Date of Last Mammogram Obstetrics History GPAL:G 1 P 1 0 0 1 Type Value Multiple Births 0 Full Term 1 Induced 0 Spontaneous 0 Premature 0 Living 1 Ectopics 0 Total 1 Immunizations Vaccine Type Date Status Note Provider Name and Address Organization Details Recorded Time pneumococcal polysaccharide PPV23 017 completed Not Available [facility] 02/12/2021 19:44:17 SARS-COV-2 (COVID-19) vaccine, UNSPECIFIED 021 completed Not Available [facility] 02/12/2021 19:44:17 SARS-COV-2 (COVID-19) vaccine, UNSPECIFIED 021 completed Not Available [facility] 02/12/2021 19:44:17 Influenza, high-dose, trivalent, PF 018 completed Not Available [facility] 08/25/2019 02:36:29 Pneumococcal conjugate PCV 13 018 completed Not Available [facility] 08/25/2019 02:36:30 Influenza, split virus, quadrivalent, preservative 019 cancelled patient objection Not Available [facility] 08/25/2019 02:38:14 Influenza, high-dose, quadrivalent, PF 021 completed [place], [place] - [facility] 07/09/2021 16:54:17 Past Encounters Encounter ID Performer Location Encounter Start Date Encounter Closed Date Diagnosis/Indication Diagnosis SNOMED-CT Code Diagnosis ICD10 Code Diagnosis Note [id number] ADIN Mcmahan NP [facility] [address] [place] [address] 05/29/2018 10:52:12 05/29/2018 12:15:36 Mixed anxiety and depressive disorder 278142088 F41.8 -Renew sertraline -Discussed counseling services-F /u prn Screening mammography 24 034278 Z12.31 Screening for malignant neoplasm of colon 152761312 Z12.11 Active or passive immunization 850397064 Z23 [id number] ADIN Mcmahan NP [facility] [address] [place] [address] 08/09/2018 11:53:38 08/09/2018 12:22:44 Acute conjunctivitis 35534480 H10.31 -Start optic antibiotic s-Cleanse with baby soap and water-Avoi d wearing contact lenses until infection gone-F/u prn [id number] ADIN Mcmahan NP [facility] [address] [place] [address] 10/10/2018 10:31:30 10/10/2018 11:32:50 Fatigue 02249314 R53.83 -Obtain labs-Encou raged adequate diet, fluid intake, sleep-Star t MVI Hyperlipid emia screening 824318975 Z13.220 -Obtain lab [id number] Bettye Hopson MD [facility] [address] [place] [address] 11/22/2018 10:11:13 11/27/2018 09:03:16 Moderate recurrent major depression 51122947 F33.1 Screening mammography 24 627566 Z12.31 [id number] Bettye Hopson MD [facility] [address] [place] [address] 05/17/2019 15:12:12 05/21/2019 12:01:50 Bilateral foot joint pain 4767299677 8985531 M79.671 M79.672 pain in feet with prolonged walking, not plantar fasciitis in the morning. Screening mammography 24 853537 Z12.31 Pain of hip region 32238 002 M25.559 will call us with the orthopedic surgeon who did shots in her right knee. Administra tion of influenza vaccine 82571780 Z23 risks and benefits of immunizati ons reviewed, and patient agreed to receive shot [id number] Bettye Hopson MD [facility] [address] [place] [address] 11/30/2019 09:27:17 12/03/2019 11:06:29 Vitamin D deficiency 50299311 E55.9 Anxiety disorder 1820547 06 F41.9 Depressive disorder 3548 9007 F32.9 [id number] Bettye Hopson MD [facility] [address] [place] [address] 07/14/2020 11:01:29 07/21/2020 08:38:31 Moderate recurrent major depression 69300895 F33.1 [id number] Darrian johns MD [facility] [address] [place] [address] 07/09/2021 14:52:59 07/10/2021 08:26:24 Screening for malignant neoplasm of breast 165816326 Z12.39 last mammo 2020no h/o abnormals Adult heal th examination 898575126 Z00.00 c/o R hip pain for the past month, intermitte nt and sharp at timesoccur s when she is drivingtak es ibuprofen PRNno pain with walkingart hritis vs bursitisFR OM R hiptrial tylenol arthritisf /u with any worsening painroutin e labs Administra tion of influenza vaccine 96114970 Z23 Depressive disorder 3548 9007 F32.9 controlled with zoloft Health Concerns Section Related Observation LastModified by Organization Detai ls LastModified Time None Recorded Concern Status LastModified by Organization Details LastModified Time None Recorded Advance Directives Directive N: Payers Encounter Date Sequence Insurance Name Policy Number Policy Mathis Covered Member ID Mathis Member ID Guarantor Name 11/22/[address] [facility] (MEDICARE REPLACEMENT HMO) S2L Shikha Chawla [id number] Shikha Chawla 05/17/[address] [facility] (MEDICARE REPLACEMENT HMO) S2L Shikha Chawla [id number] Shikha Chawla 11/30/[address] [facility] (MEDICARE REPLACEMENT HMO) S2L Shikha Chawla [id number] Shikha Chawla 07/14/[address] [facility] (MEDICARE REPLACEMENT HMO) S2L Shikha Chawla [id number] Shikha Chawla 07/09/[address] [facility] (MEDICARE REPLACEMENT HMO) S2L Shikha Chawla [id number] Shikha Chawla Notes Date Note Type Note Provider Name and Address Organization Details Recorded Time 11/22/2018 text/html Anxiety/Depressi on Reported bypatient.Quality: symptoms improved;symptoms worse in the evening;increased anxiety;panic symptoms Severity:denies suicidal ideations; able to maintain relationships;inte rference with sleep;interference with work Duration:ny g; august 2018 Onset/Timing:gradu al; 3 months ago Context:trouble at work;bereavement; financial stress Modifying Factors:counselcheko g; social support; pt states that she is scheduled to see a counselor tomorrow Associated Symptoms:denies homicidal ideations; no significant weight gain; no significant weight loss; no visual/auditory hallucinations; no delusions; mood good; no crying spells; no apathy; maintaining functionality;eati ng more;emotional lability;anxiety;h ypersensitivity;de pression;lonelines s;grieving;restles sness/agitation;sl eep disturbances;anxie ty with muscle tension;feeling guilty;sleeping more (hypersomnia);inab ility to make decisions;low self-esteem;pessim ism;despair/hopele ssness;social withdrawal;decreas ed effectiveness/prod uctivity;diarrhea; headaches;shortnes s of breath; in some instances decreased effectiveness/prod uctivity having trouble focusing- anxiety Bettye Hopson MD Attn: [address] [place], [address], [place] [facility] 11/26/2018 21:55:30 05/17/2019 text/html FootReported bypatient.Location :left Quality:aching; burning; stabbing; throbbing; sharp; superficial Severity:pain level 3/10; worst pain 10/10 Duration:6 months Timing:gradualHip( s)Reported bypatient.Location :right Quality:stabbing; frequent Severity:moderate; pain level 7/10; worst pain 8-9/10 Duration:6 months Alleviating Factors:ice; OTC medication Aggravating Factors:walking; weightbearing; upstairs; downstairs; morning; nighttime; cold weather; damp weather Associated Symptoms:no warmth Previous Surgery:none Prior Imaging:none Previous Injections:none Previous PT:none Bettye Hopson MD Attn: [address] , [place], [address], [facility] 05/20/2019 23:16:42 11/30/2019 text/html Vitamin D level was very low on 10-10-2018, and she has had limited sunlight exposure due to self-isolating in the house for several months. Bettye Hopson MD Attn: [address] , [place], [address], [facility] 12/02/2019 20:30:53 11/30/2019 text/html Anxiety/Depressi on Reported bypatient.Quality: symptoms improved Severity:denies suicidal ideations; does not interfere with activities of daily living Duration:stablizin g Onset/Timing:gradu al Context:family problems;trouble at work Modifying Factors:counsellin g; medications as directed Associated Symptoms:denies homicidal ideations; mood good; no crying spells; sleeping wellNotes:better with alprazolam and sertraline. Bettye Hopson MD Attn: [address] [facility], [place], [address], [facility] 12/02/2019 20:30:53 07/14/2020 text/html Anxiety/Depressi on Reported bypatient.Quality: symptoms improved Severity:denies suicidal ideations; does not interfere with activities of daily living Duration:stablizin g Onset/Timing:gradu al Context:family problems;trouble at work Modifying Factors:counsellin g; medications as directed Associated Symptoms:denies homicidal ideations; mood good; no crying spells; sleeping wellNotes:doing well with sertraline. Bettye Hopson MD Attn: [address] [facility], [place], [address], [facility] 07/20/2020 20:09:00 07/09/2021 text/html Pt presents for routine check-up and blood work. C/o right hip pain for the past month. 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 Pain is intermittent and sharp. No pain/difficulty with ambulation. Takes tylenol PRN. Denies fever, chills, chest pain, SOB, n/v/d, abd pain, dizziness, weakness, or headaches. RALPH GALINDO Attn: [address] [place], [address], [facility] 07/09/2021 16:33:25 OBGyn Episode No OBEpisode recorded.
== END 2024-12-27 07:34 | disposition home or self-care (01) ==
LOC: ANHIMG 07:35
PROVIDERS: PCP Family Medicine; Visit Provider Clinical Nurse Specialist
DX: Z12.31 Encounter for screening mammogram for malignant neoplasm of breast (principal)
CPT/HCPCS: 77063; 77067

== ENCOUNTER 2025-03-13 14:32 | Outpatient (CLI) | payer MEDICARE, SELFPAY ==
--- OUTSIDE RECORDS SUMMARY | 2025-03-13 14:40 | XMS_ITS | Clinical Summary ---
Author Organization [facility] Address [address] [place] [address] Care Team Providers Care Lace Roller Name Role Phone Rylan Lamas MD Primary Care Provider Lynn hall Social History Tobacco Use Types Packs/Day Years Used Date Smoking Tobacco: Never Assessed Comments Unknown Sex and Gender Information Value Date Recorded Sex Assigned at Not on file Legal Sex Female 7:28 PM CDT Gender Identity Not on file Sexual Orientation Not on file Last Filed Vital Signs Vital Sign Reading Time Taken Comments Blood Pressure 132/90 01/20/2018 9:25 AM CDT Pulse 87 01/20/2018 9:25 AM CDT Temperature - - Respiratory Rate - - Oxygen Saturation - - Inhaled Oxygen Concentration - - Weight 96.2 kg (212 lb) 01/20/2018 9:25 AM CDT Height 175.3 cm (5' 9) 01/20/2018 9:25 AM CDT Body Mass Index 31.31 01/20/2018 9:25 AM CDT Plan of Treatment Health Maintenance Due Date Last Done Comments Colorectal Cancer Screening Colonoscopy (10 Years) 1950 Hepatitis C 1968 DTaP, Tdap and Td Vaccines ( 1 - Tdap) 1969 Mammogram Screening 1990 Zoster Vaccines (1 of 2) 2000 Annual Medicare Wellness Visit 12/20/2015 Dexa Scan (General) 12/20/2015 COVID-19 Vaccine ( - 2023-2 5 season) 2024 RSV Immunization or 60+ Years (1 - 1-dose 75+ series) 2025 Pneumococcal Vaccine: 50+ Years Completed 06/08/2017, 05/30/2016 Meningococcal B Vaccine Aged Out No l onger eligible based on patient's age to complete this topic Meningococcal Vaccine Aged Out No adriana wild eligible based on patient's age to complete this topic RSV Immunizations Under 20 Months Aged Out No longer eligible b ased on patient's age to complete this topic Insurance Care Teams Lace Roller Relationship Specialty Start Date End Date Rylan Lamas MD PCP - General 08/28/13
--- OUTSIDE RECORDS SUMMARY | 2025-03-13 14:40 | XMS_ITS | Clinical Summary ---
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 Gender Identity Not on file Sexual Orientation [...] 10:35 AM CDT Height 175.3 cm (5' 9) 10/20/2021 10:35 AM CDT Body Mass Index [...] 2024 11/29/2020, 10/29/2020, 10/09/2020 Influenza Vaccine (#1) 2025 , 08/05/2020, 05/29/2018, Additional history exists DTaP/Tdap/Td Vaccine (3 - Td or Tdap) 01/16/2027 01/16/2017, 05/15/2015 Pneumococcal vaccine 65+ Completed 018, 06/08/2017, 05/26/2017, Additional history exists Insurance [employer] MEDICARE PPO [employer] MEDICARE HMO Care Teams Sheet Metal Supervisor Relationship Specialty Start Date End Date Ayesha Richards MD PCP - General Family Medicine 10/20/21
--- OUTSIDE RECORDS SUMMARY | 2025-03-13 14:40 | XMS_ITS | Clinical Summary ---
Author Organization [facility] Address [address] [place] [address] [place] [address] Care Team Providers Care Release Of Information Specialist Name Role Phone Bayron Shahid MD Primary Care Provider [phone] Source Comments [facility],non-owned Affiliates and Associated Physician Practices is amultiple site organization consisting of ambulatory clinics and hospital sitesin [place], [place], [place] and [place]. This disclosure is being madepursuant to the Care Everywhere program and may not contain all information available regarding this patient. 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 [place] [address] Care Teams Release Of Information Specialist Relationship Specialty Start Date End Date Bayron Shahid MD PCP - General Internal Medicine 01/27/18
--- OUTSIDE RECORDS SUMMARY | 2025-03-13 14:40 | XMS_ITS | Clinical Summary ---
Author Organization 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 Gender Identity Not on file Sexual Orientation Not on file Plan of Treatment Health Maintenance Due Date Last Done Comments Hepatitis C Virus (HCV) Screening 1950 Cologuard 12/20/1995 Colonoscopy 12/20/1995 Colorectal Cancer Screening 12/20/1995 Immunochemical Fecal Occult Blood 12/20/1995 Zoster Immunization (1 of 2) 2000 SARS-COV-2 Immunization ( season) 2024 Influenza Immunization (#1) 04/08/202507/09, 05/29/2018, 06/08/2017, Additional history exists Respiratory Syncytial Virus (RSV) Immunization (Adult) (1 - 1-dose 75+ series) 2025 DTaP/Tdap/Td Immunization Discontinued 01/16/2017, 03/2015 TdaP Immunization Completed 01/16/2017, 05/15/2015 Pneumococcal Immunization (50+ years) Completed 05/29/2018, 06/08/2017, 05/26/2017, Additional history exists Hepatitis B Immunization Aged Out No longer eligible based on patient's age to complete this topic Human Papillomavirus (HPV) Immunization Aged Out No longer eligible based on patient's age to complete this topic Meningococcal Immunization (ACWY) Aged Out No longer eligible based on patient's age to complete this topic Rotavirus Immunization Aged Out No lo nger eligible based on patient's age to complete this topic
[2025-03-13 18:06] LABS: Hematocrit 42.5 % (37.0-47.0); Hemoglobin 13.9 g/dL (12.0-15.0); Immature Granulocyte Percent A 0.6 % (0-0.5); Lymphocytes Absolute Auto 1.20 K/mm3 (0.9-3.2); Mean Corpuscular HGB Conc 32.7 g/dl (32-36); Mean Corpuscular Hemoglobin 30.9 pg (26-34); Mean Corpuscular Volume 94.4 fl (80-100); Nucleated Red Blood Cells Absolute Auto 0.000 K/mm3 (0.0-0.012); Nucleated Red Blood Cells Perc 0.0 % (0.0-0.2); Platelet Count Result 162 k/mm3 (150-375); Red Blood Count 4.50 M/mm3 (4.2-5.4); White Blood Count 5.1 K/mm3 (4.5-10.0)
[2025-03-13 18:17] LABS: Alanine Aminotransferase 439 U/L (6-35); Albumin Level 4.1 g/dL (3.5-5.1); Alkaline Phosphatase 369 U/L (38-126); Amylase 56 U/L (30-110); Anion Gap 6 mmol/L (4-12); Aspartate Amino Transferase 298 U/L (14-36); Bilirubin,Total 1.1 mg/dL (0.2-1.3); Blood Urea Nitrogen 13 mg/dL (7-17); Calcium 9.2 mg/dL (8.4-10.2); Carbon Dioxide 28 mmol/L (22-30); Chloride 103 mmol/L (98-107); Estimated Glomerular Filt Rate > 60; Glucose 108 mg/dL (65-110); Lipase 113 U/L (23-300); Potassium 4.1 mmol/L (3.4-5.0); Sodium 137 mmol/L (137-145); Total Protein 7.0 g/dL (6.3-8.2)
[2025-03-13 18:22] LABS: Add Urine Microscopic? YES; Appearance Urine Clear (Clear); Glucose Urine UA Negative (Negative); Leukocyte Esterase Ur 1+ LEU/UL (Negative); Need Manual Microscopic Reviewed; Nitrate Urine Negative (Negative); Non Pathogenic Casts 0-2; Specific Grav Ur 1.010 (1.001-1.035)
[2025-03-13 18:53] LABS: Thyroid Stimulating Hormone 1.780 uIU/mL (0.465-4.680)
[2025-03-13 19:08] LABS: Hemoglobin A1C 6.0 % (<5.7)
== END 2025-03-13 14:33 | disposition home or self-care (01) ==
LOC: ANHGOSHLAB 14:33
PROVIDERS: PCP Internal Medicine; Visit Provider Clinical Nurse Specialist
DX: F41.9 Anxiety disorder, unspecified (principal); R10.9 Unspecified abdominal pain; R19.5 Other fecal abnormalities; F32.A Depression, unspecified; R73.01 Impaired fasting glucose
CPT/HCPCS: 36415; 80053; 81001; 82150; 83036; 83690; 84443; 85025; 87086

== ENCOUNTER 2025-03-14 09:09 | Outpatient (CLI) | payer MEDICARE, SELFPAY ==
--- OUTSIDE RECORDS SUMMARY | 2025-03-14 09:18 | XMS_ITS | Patient Health Record ---
Author Organization [facility] [employer] Address [address] [place] [address] Care Team Providers Care Weather Analyst Name Role Phone Awa ROQUE DO Primary Care Provider Jaymie ilVasquez Rai Unavailable [phone] TESSA BABCOCK Unavailable Unavailable Yadi Armijo Unavailable [phone] Allergies Allergen (clinical drug ingredient) Drug/Non Drug Allergy documented on EMR Reaction Allergy Type Onset Date Status almond allergenic extract [place] (Diagnostic) Unknown Drug Allergy Active Penicillin Unknown Drug Allergy Active Results Component Value Reference Range Notes UDT Reviewed date:11/13/2024 04:47:19 PM Interpretation: Performing Lab: Notes/Report: THC N 0 - 50 ng/ml Cocaine N 0 - 300 ng/ml Amphetamine N 0 - 1000 ng/ml Buprenorphine (BUP) N 0 - 10 ng/ml Secobarbital (Bar) N 0 - 300 ng/ml Oxazepam (BZO) N 0 - 300 ng/ml 0-ykcmnyvfkh-4,0-mqhvuvuv-4,3-diphenylpyrrolidine (PHAM P) N 0 - 300 ng/ml Methamphetamine (MET) N 0 - 1000 ng/ml Methylenedioxymethamphetamine (MDMA) N 0 - 500 ng/ml Morphine (MOP 300/HDD1255) N 0 - 300 ng/ml Methadone (MTD) N 0 - 300 ng/ml Phencyclidine (PCP) N 0 - 25 ng/ml Nortriptyline (TCA) N 0 - 1000 ng/ml Oxycodone N 0 - 300 ng/ml x N 0 - 300 ng/ml Reason For Referral No Information Medications Medication SIG (Take, Route, Frequency, Duration) Notes Start Date End Date Status ALPRAZolam 0.25 MG TAKE 1 TABLET BY ORESTES TH ONCE DAILY NEEDED FOR ANXIETY Oral; Duration: 30 Days Active buPROPion HCl ER (XL) 150 MG TAKE 1 TABLET BY MOUTH IN THE MORNING; Duration: 90 Active Sertraline HCl 100 MG 1 tablet Oral Once a day; Duration: 90 days Active Social History Tobacco Use: Social History Observation Description Date Details (start date - stop date) Never Smoker NA - NA Sex Assigned At : Social History Observation Description Sex Assigned At Female Tobacco Control (Standard) Question Answer Notes Tobacco use: Nonsmoker AUDIT-C (Standard) Question Answer Notes Points 5 Interpretation Positive Did you have a drink contain ing alcohol in the past year? Yes How often did you have six o r more drinks on one occasion in the past year? Less than monthly (1 point) How many drinks did you have on a typical day when you were drinking in the past year? 1 or 2 drinks (0 point) How often did you have a dri nk containing alcohol in the past year? Daily or almost daily (4 points) Problems Problem Type SNOMED Code ICD Code Onset Dates Problem Status W/U Status Risk Notes Problem Severe recurrent major depression without psychotic features (74455705) Major depressive disorder, 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 confirmed Problem Generalized anxiety disorder (46126252) GELY (generalized anxiety disorder) (F41.1) Active confirmed Problem Posttraumatic stress disorder (22138478) PTSD (post-traumati c stress disorder) (F43.10) Active confirmed Problem Memory impairment (016696465) Memory impairment (R41.3) Active confirmed Vital Signs Heart Rate 81 /min 01/02/2025 Height-cm 175.26 cm 01/02/2025 Blood pressure diastolic 80, 145 mm Hg 01/02/2025 Weight-kg 99.79 kg 01/02/2025 Height 69 in 01/02/2025 Blood pressure systolic 145 mm Hg 01/02/2025 Weight 220 lbs 01/02/2025 BMI 32.48 kg/m2 01/02/2025 Encounters Encounter Location Date Provider Diagnosis [facility] [employer] [facility] [address] [address] 11/12/2024 Vasquez John GELY (generalized anx iety disorder) F41.1 ; Major depressive disorder, recurrent severe without psychotic features F33.2 ; PTSD (post-traumatic stress disorder) F43.10 ; Encounter for screening for depression Z13.31 and Memory impairment R41.3 [facility] [employer] [place] [address] [address] [facility] [address] [facility] [address] [place] [address] 11/26/2024 Vasquez John Memory impairment R4 1.3 [facility] [employer] [address] [facility] [address] [place] [address] 12/03/2024 Vasquez John Encounter for screen ing for cardiovascular disorders Z13.6 ; Encounter for screening for depression Z13.31 ; Major depressive disorder, recurrent severe without psychotic features F33.2 ; GELY (generalized anxiety disorder) F41.1 ; PTSD (post-traumatic stress disorder) F43.10 and Memory impairment R41.3 [facility] [employer] [address] [facility] [address] [place] [address] 01/02/2025 Vasquez John Major depressive disorder, recurrent severe without psychotic features F33.2 ; GELY (generalized anxiety disorder) F41.1 ; PTSD (post-traumatic stress disorder) F43.10 ; Memory impairment R41.3 ; Encounter for screening for cardiovascular disorders Z13.6 ; Dietary counseling and surveillance Z71.3 and Encounter for screening for depression Z13.31 Assessments Encounter Date Diagnosis (ICD Code) Assessment Notes Treatment Notes Treatment Clinical Notes Section Notes 11/12/2024 Major depressive disorder, recurrent severe without psychotic features (ICD-10 - F33.2) 11/12/2024 GELY (generalized anxiety disorder) (ICD-10 - F41.1) 12/03/2024 Encounter for screening for cardiovascular disorders (ICD-10 - Z13.6) 01/02/2025 Major depressive disorder, recurrent severe without psychotic features (ICD-10 - F33.2) Patient reports improvement in mood with Wellbutrin. Stress from downsizing and neighbor harassment exacerbates symptoms. - Continue Wellbutrin er 150 mg tablet once a day. - Consider addressing neighbor harassment legally. 11/26/2024 Memory impairment (ICD-10 - R41.3) Cognitive and Functional Assessment Interpretation Patient ID: [email or web address] Age: 73 years Gender: Female Assessment Date: November 26, 2024 Comparative Group: Females aged 65 to 74 Total Tools Completed: 6 cognitive tasks, plus SLUMS and IQCODE Cognitive Performance Summary Domain Score Interpretation Feature Match (Attention) 89 Low average Paired Associates (Episodic Memory) 85 Below average Double Trouble (Response Inhibition) 93 Average Number Ladder (Visuospatial Working Memory) 97 Average Rotations (Mental Rotation) 101 Average Digit Span (Verbal Short-Term Memory) 89 Low average Observation: Most scores fall within the low average to average range, with the episodic memory task (Paired Associates) being the only domain below the expected threshold. No domains fall into clearly impaired territory, but some early signs of decline in memory are emerging. Functional Screeners SLUMS Total Score: 25 Falls within the mild cognitive impairment range for individuals with high school education. IQCODE Total Score: 3.44 This value is just below the common threshold of concern (typically >3.6). Indicates no strong evidence of functional decline reported by an informant, but subjective concerns may be emerging. Interpretation and Clinical Impression The combined profile suggests: Mild cognitive impairment (MCI), particularly with early episodic memory difficulties, as supported by both objective testing and SLUMS score. Preserved visuospatial reasoning, working memory, and response inhibition, with no indications of global or widespread decline. IQCODE is within normal range, implying that day-to-day functioning is still largely intact, though there may be subjective or mild observable changes. Recommendations 1. Ongoing Monitoring Repeat SLUMS and cognitive battery annually to track progression. If any significant decline in function is observed (e.g., medication management, bill paying), consider further evaluation for dementia. 2. Cognitive Support Strategies Encourage cognitive activities that target memory and attention (e.g., recall exercises, memory card games, name-face matching tasks). Promote routines, structured environments, and the use of calendars or checklists. 3. Health and Lifestyle Ensure management of cardiovascular risk factors (hypertension, diabetes, cholesterol) and monitor mood, as depression can mimic cognitive decline. Support physical activity, social engagement, and proper sleep hygiene. 4. Medical Review Consider reviewing medications for anticholinergic burden or sedative effects that could impact cognition. Screen for untreated sensory impairments (hearing or vision), which can affect performance on memory tasks. Final Note This cognitive profile is borderline normal with signs of mild memory-related decline, consistent with mild cognitive impairment, but not suggestive of dementia. Functional capacity remains stable. Continued monitoring and early supportive strategies are appropriate to maintain quality of life and independence. 01/02/2025 GELY (generalized anxiety disorder) (ICD-10 - F41.1) Anxiety exacerbated by neighbor harassment and moving stress. - Consider addressing neighbor harassment legally. 01/02/2025 PTSD (post-traumatic stress disorder) (ICD-10 - F43.10) 12/03/2024 Encounter for screening for depression (ICD-10 - Z13.31) 11/12/2024 PTSD (post-traumatic stress disorder) (ICD-10 - F43.10) 11/12/2024 Encounter for screening for depression (ICD-10 - Z13.31) 01/02/2025 Memory impairment (ICD-10 - R41.3) 12/03/2024 Major depressive disorder, recurrent severe without psychotic features (ICD-10 - F33.2) 01/02/2025 Encounter for screening for cardiovascular disorders (ICD-10 - Z13.6) 11/12/2024 Memory impairment (ICD-10 - R41.3) 12/03/2024 GELY (generalized anxiety disorder) (ICD-10 - F41.1) 12/03/2024 PTSD (post-traumatic stress disorder) (ICD-10 - F43.10) 01/02/2025 Dietary counseling and surveillance (ICD-10 - Z71.3) 01/02/2025 Encounter for screening for depression (ICD-10 - Z13.31) 12/03/2024 Memory impairment (ICD-10 - R41.3) 11/12/2024 Other Learning About Depression Screening material was printed Problem-Based Assessment and Plan Shikha Chawla, a 73-year-old female with a history of depression and anxiety, presents with concerns about concentration difficulties, financial worries, and worsening mood symptoms. Major Depressive Disorder Assessment: Patient reports ongoing symptoms of depression, including sadness, social withdrawal, feelings of hopelessness, and worries about the future. She has a history of depression and has been taking Zoloft 100 mg for over 20 years. Recent PHQ-9 score of 18 indicates moderate to severe depression. Patient was briefly switched to Lexapro but returned to Zoloft in October due to better efficacy. Depression appears to be chronic, lasting more than 10 years, with fluctuations related to financial stability. Plan: - Continue sertraline (Zoloft) 100 mg PO daily - Recommend follow-up appointment to reassess efficacy of current medication regimen - Consider referral for psychotherapy to address ongoing depressive symptoms Generalized Anxiety Disorder Assessment: Patient reports longstanding anxiety symptoms, which have been overwhelming for a long time. Current GELY-7 score of 18 indicates severe anxiety. She uses occasional Xanax for acute anxiety management. Anxiety appears to be exacerbated by financial concerns and life transitions. Plan: - Continue as-needed alprazolam (Xanax) for acute anxiety management - Discuss potential non-pharmacologica l interventions for anxiety management - Monitor anxiety symptoms at follow-up appointments Possible Attention-Deficit/ Hyperactivity Disorder (ADHD) Assessment: Patient reports concentration difficulties, easy distractibility, and inability to stay on one subject. These symptoms have been noted by her daughter and friends. Patient's granddaughter was recently diagnosed with ADHD, raising concerns about possible genetic predisposition. However, these symptoms could also be related to her depression or anxiety. Further evaluation is needed to differentiate between ADHD and mood disorder-related cognitive symptoms. Plan: - Schedule ADHD-specific testing within the next 1-2 weeks - Consider full cognitive testing to evaluate for ADHD and mild cognitive impairment - Communicate testing plan with Dr. Roque via clinical note Obstructive Sleep Apnea Assessment: Patient was diagnosed with severe sleep apnea in November or March 2024. She currently uses a CPAP machine but continues to experience vivid dreams and reports a history of sleepwalking. Plan: - Continue CPAP therapy as prescribed - Monitor sleep quality and daytime fatigue at follow-up appointments - Consider referral to sleep specialist if symptoms persist despite CPAP use Financial Stress Assessment: Patient reports significant financial concerns, including inability to fully retire due to lack of savings. She currently works part-time on commission and receives $1,800 monthly from Social Security. These financial stressors appear to be contributing to her depression and anxiety symptoms. Plan: - Provide resources for financial counseling or forensic social worker that may assist with budgeting and financial planning - Discuss potential impact of financial stress on mental health and explore coping strategies Disclaimer: This note has been transcribed using speech recognition software and serves as a reflection of the patient's visit. While efforts have been made to ensure accuracy, there may be errors, including facing machine operator inaccuracies and misspellings of medication names. This document should not be considered a verbatim record, and any discrepancies should be verified with the provider. 12/03/2024 Other referral to the local chapter or national office of the Alzheimer's Association (3-052-721-390 0; http://www.alz .org), the Alzheimer's Disease Education and Referral Center (ADEDC) (9-164-964-438 0; http://www.vernon .nih.gov/Alzhe imers/), Shikha Chawla presents with ongoing depressive symptoms, mild cognitive concerns, and alcohol use, reporting decreased motivation and financial struggles. Major Depressive Disorder Assessment: Patient reports ongoing depressive symptoms, including lack of motivation and inability to engage in previously enjoyed activities like painting. She expresses feelings of failure and worry about others' perceptions. Current treatment includes sertraline and alprazolam as needed. Previous trials of bupropion and Lexapro were unsuccessful. Depression is noted to have a negative impact on the patient's memory. Plan: - Add bupropion 150 mg PO qAM in addition to current sertraline - Continue current medications: sertraline, endomericum, and alprazolam as needed - Follow-up appointment in one month Mild Cognitive Impairment Assessment: Patient reports subjective worsening of memory compared to 10 years ago. Recent cognitive testing revealed a score of 25, indicating mild cognitive issues at the borderline. Activities of daily living score is 8/8. Specific cognitive test results include: Feature match 89, focus and distraction resistance 85, visual-spatial working memory 97, visual rotation 101, digital span 89 - all within normal range. One area below average was impaired associates (ability to remember specific events in context). Patient does not currently meet criteria for mild cognitive disorder. Plan: - Repeat cognitive testing in 6 months to 1 year Alcohol Use Assessment: Patient reports consuming approximately two glasses of wine nightly. Acknowledges the need to reduce alcohol intake. Plan: - Encourage reduction in alcohol consumption Psychosocial Stressors Assessment: Patient reports financial struggles and concerns about others' perceptions of her, contributing to feelings of failure. Disclaimer: This note has been transcribed using speech recognition software and serves as a reflection of the patient's visit. While efforts have been made to ensure accuracy, there may be errors, including facing machine operator inaccuracies and misspellings of medication names. This document should not be considered a verbatim record, and any discrepancies should be verified with the provider. Plan Of Treatment Future Test Test Name Order Date SLUMS Testing 11/12/2024 Insurance Providers Payer Name Payer Address Payer Phone Subscriber Number Group Number Insured Name Patient Relationship to Insured Coverage Start Date Coverage End Date Jaimie [address]END[place] [address] [address] [place] [address] [phone] [id number] Shikha Chawla Self - patient is the insured Medical (General) History Medical History History ICD Code Sleep walking Depression Past Psychiatric History: Anxiety Disord er,Psychotic Episode undefined abdominal aortic aneurysm: No atrial fibrillation: No chronic fatigue syndrome: No essential tremor: No hyperlipidemia: No hypertension: No Parkinson's disease: No restless leg syndrome: No stroke: No subdural hematoma: No type 1 diabetes mellitus: No type 2 diabetes mellitus: No vitamin B12 deficiency: No vitamin D deficiency: No Hospitalization History Reason Date(Month/Year) sleep apnea 2023
--- OUTSIDE RECORDS SUMMARY | 2025-03-14 09:18 | XMS_ITS ---
Author Organization [facility] [employer] [facility] Address [address] [place] [address] Care Team Providers Care Spring Assembler Supervisor Name Role Phone Awa LOVE DO Primary Care Provider Vasquez Lawrence [phone] [employer]SA Unavailable Unavailable REASON FOR VISIT 2 month f/u Social History Sex Assigned At : Social History Observation Description Sex Assigned At Female Encounters Encounter Location Date Provider Diagnosis [facility] [employer] [facility] [address] [facility] [address] [place] [address] 03/04/2025 Vasquez Cole Plan Of Treatment No Information Progress Notes * Shikha PYLE DDOB: (74 yo F)Acc No.[id number]:03/04/2025 Patient: Darrick Shikha KAY Provider: Brodie COLE MD :1950 A ge:74 Y S ex:Female Date:03/04/2025 [address] [facility] Pcp:Awa LOVE DO Subjective: * Chief Complaints: * 1 . 2 month f/u. * Active Problem List F41.1 GELY (generalized anx iety disorder) Modified On:11/12/2024W/U Status:confirmed F43.10 PTSD (post-traumatic stress disorder) Modified On:11/12/2024W/U Status:confirmed F33.2 Major depressive dis order, recurrent severe without psychotic features Modified On:11/12/2024W/U Status:confirmed R41.3 Memory impairment Modified On:11/12/2024/U Status:confirmed * Medical History: Objective: * Vitals: Assessment: Plan: * Treatment: * Billing Information: * Visit Code: * Procedure Codes: * Electronic signature of Gen Cole MD on 03/14/2025 at 09:18 AM CDT Sign off status: Pending * Provider: Brodie COLE MD Date: 03/04/2025 Generated for Geovanni dutton/Vianey/Jereitting on: 03/14/2025 09:18 AM CDT
--- OUTSIDE RECORDS SUMMARY | 2025-03-14 09:18 | XMS_ITS | Clinical Summary ---
Author Organization [facility] Address [address] [place] [address] Care Team Providers Care Retail Service Representative Name Role Phone Ayesha Richards MD Primary Care Provider [phone] Allergies Active Allergy Reactions Criticality Noted Date Comments Penicillins Swelling Medium 06/12/2013 Swelling Medications sertraline (ZOLOFT) 100 mg tablet Take 100 mg by mouth daily 08/31/2021 Active vitamin E31-uiuax acid 0.5-1 mg tabletIndication s:Vitamin Deficiency Take [...] on file Legal Sex Female 1:58 AM ACCESS TECH Gender Identity Not on file Sexual Orientation [...] 018, 06/08/2017, 05/26/2017, Additional history exists Insurance [employer] MEDICARE PPO [employer] MEDICARE HMO Care Teams Retail Service Representative Relationship Specialty Start Date End Date Ayesha Richards MD PCP - General Family Medicine 10/20/21
--- OUTSIDE RECORDS SUMMARY | 2025-03-14 09:18 | XMS_ITS | Clinical Summary ---
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
--- OUTSIDE RECORDS SUMMARY | 2025-03-14 09:18 | XMS_ITS | Clinical Summary ---
Author Organization [facility] Address [address] [facility] [place] [address] Care Team Providers Care Union Carpenter Name Role Phone Bayron Shahid MD Primary Care Provider [phone] Source Comments [facility],non-owned Affiliates and Associated Physician Practices is amultiple site organization consisting of ambulatory clinics and hospital sitesin [place], [place], [place] and [place]. This disclosure is being madepursuant to the Care Everywhere program and may not contain all information available regarding this patient. Last updated 18.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
[2025-03-14 10:04] LABS: Alanine Aminotransferase 405 U/L (6-35); Albumin Level 4.4 g/dL (3.5-5.1); Alkaline Phosphatase 402 U/L (38-126); Anion Gap 7 mmol/L (4-12); Aspartate Amino Transferase 231 U/L (14-36); Bilirubin,Total 1.5 mg/dL (0.2-1.3); Blood Urea Nitrogen 11 mg/dL (7-17); Calcium 9.1 mg/dL (8.4-10.2); Carbon Dioxide 29 mmol/L (22-30); Chloride 100 mmol/L (98-107); Estimated Glomerular Filt Rate > 60; Glucose 119 mg/dL (65-110); Potassium 4.2 mmol/L (3.4-5.0); Sodium 136 mmol/L (137-145); Total Protein 7.2 g/dL (6.3-8.2)
== END 2025-03-14 09:10 | disposition home or self-care (01) ==
LOC: ANHLAB 09:10
PROVIDERS: PCP Internal Medicine; Visit Provider Clinical Nurse Specialist
DX: R74.01 Elevation of levels of liver transaminase levels (principal)
CPT/HCPCS: 36415; 80053; 87177

== ENCOUNTER 2025-03-14 12:24 | Outpatient (CLI) | payer MEDICARE, SELFPAY ==
--- OUTSIDE RECORDS SUMMARY | 2025-03-14 12:28 | XMS_ITS | Clinical Summary ---
Author Organization [facility] Address [address] [facility] [place] [address] Care Team Providers Care Gridcap Machine Operator Name Role Phone Bayron Shahid MD Primary Care Provider [phone] Source Comments [facility],non-owned Affiliates and Associated Physician Practices is amultiple site organization consisting of ambulatory clinics and hospital sitesin [place], [place], [place] and [place]. This disclosure is being madepursuant to the Care Everywhere program and may not contain all information available regarding this patient. 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
--- OUTSIDE RECORDS SUMMARY | 2025-03-14 12:28 | XMS_ITS | Clinical Summary ---
Author Organization [facility] Address [address] [place] [address] Care Team Providers Care Admitting Supervisor Name Role Phone Rylan Lamas MD Primary [...] to complete this topic Insurance Care Teams Admitting Supervisor Relationship Specialty Start Date End Date Rylan Lamas MD PCP - General 08/28/13
--- OUTSIDE RECORDS SUMMARY | 2025-03-14 12:28 | XMS_ITS | Clinical Summary ---
Author Organization [facility] Address [address] [place] [address] Care Team Providers Care Sales Operations Associate Name Role Phone Ayesha Richards MD Primary Care Provider Allergies Active Allergy Reactions Criticality Noted Date Comments Penicillins Swelling Medium 06/12/2013 Swelling Medications sertraline (ZOLOFT) 100 mg tablet Take 100 mg by mouth daily 08/31/2021 Active vitamin X59-pygrq acid 0.5-1 mg tabletIndication s:Vitamin Deficiency Take [...] on file Legal Sex Female 1:58 AM BOROUGH COORDINATOR Gender Identity Not on file Sexual Orientation [...] 018, 06/08/2017, 05/26/2017, Additional history exists Insurance [employer] MEDICARE PPO [employer] MEDICARE HMO Care Teams Sales Operations Associate Relationship Specialty Start Date End Date Ayesha Richards MD PCP - General Family Medicine 10/20/21
--- OUTSIDE RECORDS SUMMARY | 2025-03-14 12:28 | XMS_ITS | Clinical Summary ---
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
== END 2025-03-14 12:25 | disposition home or self-care (01) ==
PROVIDERS: PCP Internal Medicine; Visit Provider Clinical Nurse Specialist
DX: F41.9 Anxiety disorder, unspecified (principal); R10.9 Unspecified abdominal pain; R19.5 Other fecal abnormalities
CPT/HCPCS: 87177

== ENCOUNTER 2025-03-19 08:35 | Outpatient (CLI) | payer MEDICARE, SELFPAY ==
--- OUTSIDE RECORDS SUMMARY | 2025-03-19 08:49 | XMS_ITS | Clinical Summary ---
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
--- OUTSIDE RECORDS SUMMARY | 2025-03-19 08:49 | XMS_ITS | Clinical Summary ---
Author Organization [facility] Address [address] [place] [address] Care Team Providers Care Stationary Engineer Supervisor Name Role Phone Bayron Shahid MD Primary Care Provider [phone] Source Comments [facility],non-owned Affiliates and Associated Physician Practices is amultiple site organization consisting of ambulatory clinics and hospital sitesin [place], [place], [place] and [place]. This disclosure is being madepursuant to the Care Everywhere program and may not contain all information available regarding this patient. 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
--- OUTSIDE RECORDS SUMMARY | 2025-03-19 08:50 | XMS_ITS | Clinical Summary ---
Author Organization [facility] Address [address] [place] [address] Care Team Providers Care Anti Air Warfare Operations Officer Name Role Phone Rylan Lamas MD Primary [...] to complete this topic Insurance Care Teams Anti Air Warfare Operations Officer Relationship Specialty Start Date End Date Rylan Lamas MD PCP - General 08/28/13
--- OUTSIDE RECORDS SUMMARY | 2025-03-19 08:50 | XMS_ITS ---
Author Organization [facility] [employer] [facility] Address [address] [place] [address] Care Team Providers Care Carpenter Cradle And Dolly Name Role Phone Awa LOVE DO Primary Care Provider Vasquez Lawrence [phone] SENCI NATIONAL SALES TRAINER-CTESSA Unavailable Unavailable REASON FOR VISIT 2 month f/u Social History Sex Assigned At : Social History Observation Description Sex Assigned At Female Encounters Encounter Location Date Provider Diagnosis [facility] [employer] [facility] [address] [facility] [address] [place] [address] 03/04/2025 Vasquez Cole Plan Of Treatment No Information Progress Notes * Shikha PYLE DDOB: (74 yo F)Acc No.[id number]:03/04/2025 Patient: Darrick Shikha KAY Provider: Brodie COLE MD :1950 A ge:74 Y S ex:Female Date:03/04/2025 Address:[address] [facility] Pcp:Awa LOVE DO Subjective: * Chief Complaints: [...] Electronic signature of Gen Cole MD on 03/19/2025 at 08:49 AM CDT Sign off status: Pending * Provider: Brodie COLE MD Date: 03/04/2025 Generated for Geovanni dutton/Vianey/Jereitting on: 03/19/2025 08:49 AM CDT
--- OUTSIDE RECORDS SUMMARY | 2025-03-19 08:50 | XMS_ITS | Clinical Summary ---
Author Organization 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
--- OUTSIDE RECORDS SUMMARY | 2025-03-19 08:50 | XMS_ITS | Patient Health Record ---
Author Organization [facility] Address [address] [place] [address] Care Team Providers Care High School Librarian Name Role Phone Awa ROQUE DO Primary Care Provider Jaymie ilVasquez Rai Unavailable [phone] TESSA BABCOCK Unavailable Unavailable Yadi Armijo Unavailable [phone] Allergies Allergen (clinical drug ingredient) Drug/Non Drug Allergy documented on EMR Reaction Allergy Type Onset Date Status almond allergenic extract [place] (Diagnostic) Unknown Drug Allergy Active Penicillin Unknown [...] Oxazepam (BZO) N 0 - 300 ng/ml 0-lkjovzlrqf-4,4-akqjajxc-4,3-diphenylpyrrolidine (PHAM P) N 0 - 300 ng/ml Methamphetamine (MET) N 0 - 1000 ng/ml Methylenedioxymethamphetamine (MDMA) N 0 - 500 ng/ml Morphine (MOP 300/YDH2599) N 0 - 300 ng/ml Methadone (MTD) [...] Severe recurrent major depression without psychotic features (01469104) Major depressive disorder, 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 confirmed Problem Generalized anxiety disorder (39407170) GELY (generalized anxiety disorder) (F41.1) Active confirmed Problem Posttraumatic stress disorder (95979095) PTSD (post-traumati c stress disorder) (F43.10) Active confirmed Problem Memory impairment (059463487) Memory impairment (R41.3) Active confirmed Vital Signs Heart Rate 81 /min 01/02/2025 Height-cm 175.26 cm 01/02/2025 Blood pressure diastolic 80, 145 mm Hg 01/02/2025 Weight-kg 99.79 kg 01/02/2025 Height 69 in 01/02/2025 Blood pressure systolic 145 mm Hg 01/02/2025 Weight 220 lbs 01/02/2025 BMI 32.48 kg/m2 01/02/2025 Encounters Encounter Location Date Provider Diagnosis [facility] [employer] [employer] [facility] [address] [address] 11/12/2024 Vasquez John GELY (generalized anx iety disorder) F41.1 ; Major depressive disorder, recurrent severe without psychotic features F33.2 ; PTSD (post-traumatic stress disorder) F43.10 ; Encounter for screening for depression Z13.31 and Memory impairment R41.3 [facility] [employer] [place] [address] [address] [facility] [address] [facility] [address] [place] [address] 11/26/2024 Vasquez John Memory impairment R4 1.3 [facility] [employer] [address] [facility] [address] [place] [address] 12/03/2024 Vasquez John Encounter for screen ing for cardiovascular disorders Z13.6 ; Encounter for screening for depression Z13.31 ; Major depressive disorder, recurrent severe without psychotic features F33.2 ; GELY (generalized anxiety disorder) F41.1 ; PTSD (post-traumatic stress disorder) F43.10 and Memory impairment R41.3 [facility] [employer] [employer] [address] [facility] [address] [place] [address] 01/02/2025 Vasquez John Major depressive disorder, recurrent [...] - Provide resources for financial counseling or social services aide that may assist with budgeting and financial planning - Discuss potential impact of financial stress on mental health and explore coping strategies Disclaimer: This note has been transcribed using speech recognition software and serves as a reflection of the patient's visit. While efforts have been made to ensure accuracy, there may be errors, including molding cutter inaccuracies and misspellings of medication names. This document should not be considered a verbatim record, and any discrepancies should be verified with the provider. 12/03/2024 Other referral to the local chapter or national office of the Alzheimer's Association (2-181-636-390 0; http://www.alz .org), the Alzheimer's Disease Education and Referral Center (ADEMS) (5-834-791-438 0; http://www.vernon .nih.gov/Alzhe imers/), Shikha Chawla presents [...] ensure accuracy, there may be errors, including molding cutter inaccuracies and misspellings of medication names. This document should not be considered a verbatim record, and any discrepancies should be verified with the provider. Plan Of Treatment Future Test Test Name Order Date SLUMS Testing 11/12/2024 Insurance Providers Payer Name Payer Address Payer Phone Subscriber Number Group Number Insured Name Patient Relationship to Insured Coverage Start Date Coverage End Date Jaimie [address]ERSON [address] [address] [place] [address] [id number] Shikha Chawla Self - patient is the [...]
[2025-03-19 13:32] LABS: Alanine Aminotransferase 508 U/L (6-35); Albumin Level 4.5 g/dL (3.5-5.1); Alkaline Phosphatase 468 U/L (38-126); Anion Gap 10 mmol/L (4-12); Aspartate Amino Transferase 307 U/L (14-36); Bilirubin,Total 2.3 mg/dL (0.2-1.3); Blood Urea Nitrogen 16 mg/dL (7-17); Calcium 9.6 mg/dL (8.4-10.2); Carbon Dioxide 26 mmol/L (22-30); Chloride 103 mmol/L (98-107); Estimated Glomerular Filt Rate > 60; Glucose 96 mg/dL (65-110); Potassium 3.8 mmol/L (3.4-5.0); Sodium 139 mmol/L (137-145); Total Protein 8.0 g/dL (6.3-8.2)
[2025-03-19 13:39] LABS: Iron 133 ug/dL (37-170)
[2025-03-19 13:56] LABS: Percent Iron Saturation 38 % (20-50)
[2025-03-19 14:13] LABS: Hepatitis B Surface Antigen Negative (Negative)
[2025-03-19 14:23] LABS: Ferritin 480.00 ng/mL (11.1-264)
== END 2025-03-19 08:36 | disposition home or self-care (01) ==
LOC: ANHGOSHLAB 08:37
PROVIDERS: PCP Internal Medicine; Visit Provider Clinical Nurse Specialist
DX: R74.01 Elevation of levels of liver transaminase levels (principal); R74.8 Abnormal levels of other serum enzymes; Z11.59 Encounter for screening for other viral diseases
CPT/HCPCS: 36415; 80053; 82728; 83540; 83550; 86803; 87340

== ENCOUNTER 2025-03-20 08:58 | Emergency (ER) | payer MEDICARE, SELFPAY ==
[2025-03-20] VITALS (48 sets, daily range): BP systolic 104–166; BP diastolic 71–93; PULSE 75–86; RESP 10–33; TEMP 36.3; O2SAT 93–99
--- NOTE | ~2025-03-20 | CT_ITS ---
EXAMINATION: CT abdomen pelvis w con DATE: 03/20/2025 10:58 INDICATION: Right low back pain. Gallbladder sludge on ultrasound. TECHNIQUE: Computed tomography (CT) of the abdomen and pelvis was performed with 100 mL Omnipaque-350 intravenous contrast. Automated exposure control and iterative reconstruction technique were employe d. The dose-length product was 1138.73 mGy-cm. COMPARISON: Chest CT dated 03/07/2023 FINDINGS: Persistent mild irregular peripheral septal line thickening in the lower lungs consistent with mild c hronic interstitial lung disease versus atelectasis or less likely minimal pulmonary edema. Heart siz e is normal. No pericardial effusion. Small sliding-type hiatal hernia. There is a subtle approximate ly 2 x 1.5 cm hypoenhancing mass at the head of the pancreas which appears to obstruct both the commo n bile duct and main pancreatic duct and which concerning for pancreatic cancer. The common bile duct measures up to 1.6 cm and there is also mild intrahepatic biliary ductal dilation. Liver is otherwis e unremarkable. Gallbladder is normal with no dilation, wall thickening or pericholecystic inflammato ry stranding to suggest acute cholecystitis. The main pancreatic duct is dilated to 8 mm diameter at the neck of the pancreas. There is atrophy of the body and tail the pancreas likely related to the reyes spected pancreatic carcinoma. Spleen, left adrenal gland and bilateral kidneys are normal. Indetermin ate 1.5 cm right adrenal nodule. There is moderate colonic diverticulosis with a sigmoid predominance . There is no adjacent inflammatory change to suggest diverticulitis. The appendix is not visualized . No pericecal inflammatory change to suggest acute appendicitis. No bowel obstruction. Bladder is no rmal. There are few small calcified chronically degenerated uterine fibroids. Bilateral adnexa are un remarkable. No free intraperitoneal gas or fluid. No pathologically enlarged abdominal or pelvic lymp hadenopathy. Mild lumbar levoscoliosis with severe spondylosis. No suspicious lytic or blastic bone l esions. IMPRESSION: 1. 2 x 5 cm subtle hypoechoic mass at the head of the pancreas which obstructs the common bile duct a nd main pancreatic duct highly suspicious for primary pancreatic cancer. Could consider endoscopic ul trasound for further evaluation and attempted biopsy. 2. Indeterminate 1.5 cm right adrenal nodule most likely adenoma although differential would include metastatic disease. Could consider further evaluation with pre and postcontrast CT or MRI. 3. Fibroid uterus. 4. Moderate diverticulosis. Reviewed, dictated and finalized at location A. IMPRESSION: 1. 2 x 5 cm subtle hypoechoic mass at the head of the pancreas which obstructs the common bile duct and main pancreatic duct highly suspicious for primary nolan creatic cancer. Could consider endoscopic ultrasound for further evaluation and attempted biopsy. 2. Indeterminate 1.5 cm right adrenal nodule most likely adenoma although diffe rential would include metastatic disease. Could consider further evaluation wit h pre and postcontrast CT or MRI. 3. Fibroid uterus. 4. Moderate diverticulosis.
--- OUTSIDE RECORDS SUMMARY | 2025-03-20 09:06 | XMS_ITS | Clinical Summary ---
Author Organization [facility] Address [address] [facility] [place] [place] [address] Care Team Providers Care Attorney Lawyer Name Role Phone Bayron Shahid MD Primary Care Provider [phone] Source Comments [facility],non-owned Affiliates and Associated Physician Practices is amultiple site organization consisting of ambulatory clinics and hospital sitesin [place], [place], [place] and [place]. This disclosure is being madepursuant to the Care Everywhere program and may not contain all information available regarding this patient. 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
--- OUTSIDE RECORDS SUMMARY | 2025-03-20 09:06 | XMS_ITS ---
Author Organization [facility] [employer] [facility] Address [address] [place] [address] Care Team Providers Care Habilitation Worker Name Role Phone Awa LOVE DO Primary Care Provider Vasquez Lawrence [phone] SENCI LOCAL COORDINATOR-CTESSA Unavailable Unavailable REASON FOR VISIT 2 month f/u Social History Sex Assigned At : Social History Observation Description Sex Assigned At Female Encounters Encounter Location Date Provider Diagnosis [facility] [employer] [facility] [address] [email or web address] [address] [place] [address] 03/04/2025 Vasquez Cole Plan Of Treatment No Information Progress Notes * Shikha PYLE DDOB: (74 yo F)Acc No.[id number]:03/04/2025 Patient: Darrick Shikha KAY Provider: Brodie COLE MD :1950 A ge:74 Y S ex:Female Date:03/04/2025 Address:[address] [facility] Pcp:Awa LOVE DO Subjective: * Chief Complaints: [...] Electronic signature of Gen Cole MD on 03/20/2025 at 09:06 AM CDT Sign off status: Pending * Provider: Brodie COLE MD Date: 03/04/2025 Generated for Geovanni dutton/Vianey/Jereitting on: 03/20/2025 09:06 AM CDT
--- OUTSIDE RECORDS SUMMARY | 2025-03-20 09:06 | XMS_ITS | Clinical Summary ---
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
--- OUTSIDE RECORDS SUMMARY | 2025-03-20 09:07 | XMS_ITS | Patient Health Record ---
Author Organization [facility] [employer] Address [address] [place] [address] Care Team Providers Care Manager Solar Name Role Phone Awa ROQUE DO Primary Care Provider Jaymie ilVasquez Rai Unavailable [phone] TESSA BABCOCK Unavailable Unavailable Yadi Armijo Unavailable [phone] Allergies Allergen (clinical drug ingredient) Drug/Non Drug Allergy documented on EMR Reaction Allergy Type Onset Date Status almond allergenic extract [place] (Diagnostic) Unknown Drug Allergy Active Penicillin Unknown [...] Oxazepam (BZO) N 0 - 300 ng/ml 8-ekwgiuvbkn-5,5-jncllhvi-2,3-diphenylpyrrolidine (PHAM P) N 0 - 300 ng/ml Methamphetamine (MET) N 0 - 1000 ng/ml Methylenedioxymethamphetamine (MDMA) N 0 - 500 ng/ml Morphine (MOP 300/CUS8485) N 0 - 300 ng/ml Methadone (MTD) [...] Severe recurrent major depression without psychotic features (34287674) Major depressive disorder, 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 confirmed Problem Generalized anxiety disorder (70575347) GELY (generalized anxiety disorder) (F41.1) Active confirmed Problem Posttraumatic stress disorder (92752669) PTSD (post-traumati c stress disorder) (F43.10) Active confirmed Problem Memory impairment (015019879) Memory impairment (R41.3) Active confirmed Vital Signs Heart Rate 81 /min 01/02/2025 Height-cm 175.26 cm 01/02/2025 Blood pressure diastolic 80, 145 mm Hg 01/02/2025 Weight-kg 99.79 kg 01/02/2025 Height 69 in 01/02/2025 Blood pressure systolic 145 mm Hg 01/02/2025 Weight 220 lbs 01/02/2025 BMI 32.48 kg/m2 01/02/2025 Encounters Encounter Location Date Provider Diagnosis [facility] [address] [address] 11/12/2024 Vasquez John GELY (generalized anx iety disorder) F41.1 ; Major depressive disorder, recurrent severe without psychotic features F33.2 ; PTSD (post-traumatic stress disorder) F43.10 ; Encounter for screening for depression Z13.31 and Memory impairment R41.3 [facility] [place] [address] [facility] [address] [facility] [address] [place] [address] 11/26/2024 Vasquez John Memory impairment R4 1.3 [facility] [facility] [address] [place] [address] 12/03/2024 Vasquez John Encounter for screen ing for cardiovascular disorders Z13.6 ; Encounter for screening for depression Z13.31 ; Major depressive disorder, recurrent severe without psychotic features F33.2 ; GELY (generalized anxiety disorder) F41.1 ; PTSD (post-traumatic stress disorder) F43.10 and Memory impairment R41.3 [facility] [facility] [address] [place] [address] 01/02/2025 Vasquez John Major depressive disorder, recurrent [...] Provide resources for financial counseling or social sciences instructor that may assist with budgeting and financial planning - Discuss potential impact of financial stress on mental health and explore coping strategies Disclaimer: This note has been transcribed using speech recognition software and serves as a reflection of the patient's visit. While efforts have been made to ensure accuracy, there may be errors, including rock room worker inaccuracies and misspellings of medication names. This document should not be considered a verbatim record, and any discrepancies should be verified with the provider. 12/03/2024 Other referral to the local chapter or national office of the Alzheimer's Association (6-616-313-390 0; http://www.alz .org), the Alzheimer's Disease Education and Referral Center (ADESC) (9-413-274-438 0; http://www.vernon .nih.gov/Alzhe imers/), Shikha Chawla presents [...] ensure accuracy, there may be errors, including rock room worker inaccuracies and misspellings of medication names. This document should not be considered a verbatim record, and any discrepancies should be verified with the provider. Plan Of Treatment Future Test Test Name Order Date SLUMS Testing 11/12/2024 Insurance Providers Payer Name Payer Address Payer Phone Subscriber Number Group Number Insured Name Patient Relationship to Insured Coverage Start Date Coverage End Date Jaimie H[address]ERSON [address] [address] [place] [address] [id number] Shikha Chawla Self - patient is the [...]
--- OUTSIDE RECORDS SUMMARY | 2025-03-20 09:07 | XMS_ITS | Clinical Summary ---
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
--- OUTSIDE RECORDS SUMMARY | 2025-03-20 10:09 | XMS_ITS | Clinical Summary ---
Author Organization [facility] Address [address] [place] [address] Care Team Providers Care Silo Filler Name Role Phone Ayesha Richards MD Primary Care Provider [phone] Allergies Active Allergy Reactions Criticality Noted Date Comments Penicillins Swelling Medium 06/12/2013 Swelling Medications sertraline (ZOLOFT) 100 mg tablet Take 100 mg by mouth daily 08/31/2021 Active vitamin R50-qjybh acid 0.5-1 mg tabletIndication s:Vitamin Deficiency Take [...] on file Legal Sex Female 1:58 AM AGENCY LEGAL COUNSEL Gender Identity Not on file Sexual Orientation [...] 018, 06/08/2017, 05/26/2017, Additional history exists Insurance [employer] MEDICARE PPO HUMANA MEDICARE HMO Care Teams Silo Filler Relationship Specialty Start Date End Date Ayesha Richards MD PCP - General Family Medicine 10/20/21
--- OUTSIDE RECORDS SUMMARY | 2025-03-20 10:09 | XMS_ITS | Clinical Summary ---
Author Organization [facility] Address [address] [place] [address] Care Team Providers Care Xray Tech Name Role Phone Rylan Lamas MD Primary [...] patient's age to complete this topic Insurance * Guarantor: Shikha Chawla Account Type Relation to Patient Date of Phone Billing Address Personal/Family Self [address] [place] [address] Care Teams Xray Tech Relationship Specialty Start Date End Date Rylan Lamas MD PCP - General 08/28/13
--- OUTSIDE RECORDS SUMMARY | 2025-03-20 10:09 | XMS_ITS | Clinical Summary ---
Author Organization [facility] Address [address] [facility] [place] [address] Care Team Providers Care Window Tinter Name Role Phone Bayron Shahid MD Primary Care Provider [phone] Source Comments [facility],non-owned Affiliates and Associated Physician Practices is amultiple site organization consisting of ambulatory clinics and hospital sitesin [place], [place], [place] and [place]. This disclosure is being madepursuant to the Care Everywhere program and may not contain all information available regarding this patient. 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
--- OUTSIDE RECORDS SUMMARY | 2025-03-20 10:09 | XMS_ITS | Clinical Summary ---
Author Organization [facility] Address [address] [place] [address] Care Team Providers Care Rivet Hammer Machine Operator Name Role Phone Unavailable Primary Care Provider Unavailabl e Social History Tobacco Use Types Packs/Day Years Used Date Smoking Tobacco: Never Assessed Comments Unknown Sex and Gender Information Value Date Recorded Sex Assigned at Not on file Legal Sex Female 1:33 PM RUBBER FLAP CUTTER Gender Identity Not on file Sexual Orientation [...]
[2025-03-20 10:11] LABS: Hematocrit 45.0 % (37.0-47.0); Hemoglobin 14.9 g/dL (12.0-15.0); Immature Granulocyte Percent A 0.5 % (0-0.5); Lymphocytes Absolute Auto 1.02 K/mm3 (0.9-3.2); Mean Corpuscular HGB Conc 33.1 g/dl (32-36); Mean Corpuscular Hemoglobin 30.8 pg (26-34); Mean Corpuscular Volume 93.0 fl (80-100); Nucleated Red Blood Cells Absolute Auto 0.000 K/mm3 (0.0-0.012); Nucleated Red Blood Cells Perc 0.0 % (0.0-0.2); Platelet Count Result 168 k/mm3 (150-375); Red Blood Count 4.84 M/mm3 (4.2-5.4); White Blood Count 4.4 K/mm3 (4.5-10.0)
[2025-03-20 10:33] LABS: Alanine Aminotransferase 524 U/L (6-35); Albumin Level 4.5 g/dL (3.5-5.1); Alkaline Phosphatase 499 U/L (38-126); Anion Gap 9 mmol/L (4-12); Aspartate Amino Transferase 361 U/L (14-36); Bilirubin,Total 3.7 mg/dL (0.2-1.3); Blood Urea Nitrogen 13 mg/dL (7-17); Calcium 9.5 mg/dL (8.4-10.2); Carbon Dioxide 22 mmol/L (22-30); Chloride 104 mmol/L (98-107); Estimated Glomerular Filt Rate > 60; Glucose 111 mg/dL (65-110); Lipase 205 U/L (23-300); Potassium 4.1 mmol/L (3.4-5.0); Sodium 135 mmol/L (137-145); Total Protein 7.8 g/dL (6.3-8.2)
--- NOTE | 2025-03-20 14:15 | ED.GENADULT ---
HPI - General Adult General Chief complaint: Abdominal Pain Stated complaint: back pain, sent by PCP Time Seen by Provider: 03/20/25 09:20 History of Present Illness HPI narrative: 74-year-old female who is undergoing workup for gallbladder disease presenting with lower back pain. She had a ultrasound performed at [place] several days ago which showed diffuse fatty infiltration of the gallbladder with gallbladder debris a dilated CBD and a heterogenous pancreas. Her primary care physician informed return to the hospital if she developed any pain at all. The patient woke up this morning with an achy pain in her lower back. It is worse with movement. It is worse when she presses on it. She then came to the hospital to be evaluated. Patient is currently complaining of nausea and diarrhea. Related Data Home Medications ?Medication ?Instructions ?Recorded ?Confirmed ?Last Taken ?Type bupropion HCl 150 mg 24 hr tablet, 150 mg PO QAM 02/11/25 03/20/25 Unknown History extended release (Wellbutrin XL) sertraline 100 mg tablet 100 mg PO DAILY 02/11/25 03/20/25 Unknown History Allergies Allergy/AdvReac Type Severity Reaction Status Date / Time Penicillins Allergy Severe Anaphylactic Verified 03/20/25 09:16 Shock almond Allergy Itching Verified 03/20/25 09:16 [facility] Past Medical History Medical History Sleep walking Depression History of depression Surgical History Surgical History S/P tonsillectomy History of left knee surgery 1987 History of appendectomy Family History Family History Father Acute myocardial infarction Mother No problems noted. Other Heart disease Social History Social History Social History: The patient has 1 daughter. She is . She works part-time at [employer]. She lives home alone. She is lifelong nonsmoker. Code status full code Smoking status: Never smoker Second hand tobacco smoke exposure: No Alcohol intake: current Drinks per week: 14 Alcohol use details: wine, 2 at dinner per week Substance use: never Substance use type: does not use Do You Feel Safe in your Home?: Yes Lack of Transportation: No Lack of Food: Never True Current Housing: I Have Housing Concerned About Future Housing: No Difficulty Paying Gas/Electric Bills: No Difficulty Paying for Meds: No Currently Unemployed: No Education: Associate Degree Difficulty w/ Childcare or Family Care: No Living arrangements: alone Gender identity (if verbalized by the patient): Female Sexual Orientation (if Verbalized by the Patient): Straight or Heterosexual Spiritual care concerns: No Agree to blood products: Yes Exam Narrative: APPEARANCE: No apparent distress. Jaundiced Head: atraumatic. EYES: EOMI, NOSE: Atraumatic NECK: Trachea midline RESPIRATORY: No increased rate of breathing CARDIOVASCULAR: RRR, ABDOMINAL: Non-distended soft nontender no guarding rebound MUSCULOSKELETAl: Tenderness to palpation over the right paralumbar region. NEURO: Alert. Cranial nerves 2-12 grossly intact. Sensation light touch, motor function cerebellar function intact for 4 extremities. Gait exam was normal. SKIN:: Warm, dry. Jaundice PSYCHIATRIC: Normal affect Course Course Emergency Course: ZYCH 1245: Patient was not transferred overnight to [facility] and is still on their wait list. I spoke with her GI physician Dr. Ham who reach out to his contacts at [facility]. We were able to arrange outpatient management for tomorrow at 12:[address] Magana. Patient will be discharged with close GI follow-up. Vital Signs Vital signs: Vital Signs Temperature 97.3 F L 03/20/25 09:11 Pulse Rate 85 03/20/25 09:11 Respiratory Rate 16 03/20/25 09:11 Blood Pressure 141/86 H 03/20/25 09:11 Pulse Oximetry 97 03/20/25 09:11 Oxygen Delivery Room Air 03/20/25 09:11 Temperature 97.3 F L 03/20/25 09:11 Pulse Rate 86 03/21/25 12:15 Respiratory Rate 18 03/21/25 12:15 Blood Pressure 139/91 H 03/21/25 12:15 Pulse Oximetry 98 03/21/25 12:15 Oxygen Delivery Room Air 03/20/25 09:11 Medical Decision Making MDM Narrative Medical decision making narrative: -Course: 74-year-old female undergoing workup for gallbladder disease presenting with lower back pain. Lower back pain appears to be musculoskeletal. However after reviewing her ultrasound a CT abdomen pelvis and laboratory studies were ordered. Patient has had significant increase in her bilirubin and liver enzymes. CT abdomen pelvis showed a possible pancreatic mass. Clinical picture is concerning for an obstructive picture. Our GI physician was consulted however he is unable to provide the necessary services at our hospital. Patient will be transferred to [facility] -DDX includes but is not limited to: -Co-morbidities complicating care: -Social determinants of health: -External Chart Review: -Hx from independent Sources: -Independent interpretation of studies: -Discussion of Management/Consultants: -Dx tests considered but not ordered: -Procedures: -Interventions: -Shared decision making / Disposition: -RX Vital Signs Vital Signs: Vital Signs Temperature 97.3 F L 03/20/25 09:11 Pulse Rate 85 03/20/25 09:11 Respiratory Rate 16 03/20/25 09:11 Blood Pressure 141/86 H 03/20/25 09:11 Pulse Oximetry 97 03/20/25 09:11 Oxygen Delivery Room Air 03/20/25 09:11 Temperature 97.3 F L 03/20/25 09:11 Pulse Rate 86 03/21/25 12:15 Respiratory Rate 18 03/21/25 12:15 Blood Pressure 139/91 H 03/21/25 12:15 Pulse Oximetry 98 03/21/25 12:15 Oxygen Delivery Room Air 03/20/25 09:11 Lab Data 03/21/25 07:48 03/21/25 07:48 Labs: Lab Results 03/20/25 03/21/25 Range/Units 10:04 07:48 WBC 4.4 L 5.0 (4.5-10.0) K/mm3 RBC 4.84 4.92 (4.2-5.4) M/mm3 Hgb 14.9 15.1 H (12.0-15.0) g/dL Hct 45.0 46.6 (37.0-47.0) % MCV 93.0 94.7 (80-100) fl MCH 30.8 30.7 (26-34) pg MCHC 33.1 32.4 (32-36) g/dl RDW 14.2 14.3 (11.5-14.5) % Plt Count 168 180 (150-375) k/mm3 MPV 9.3 9.5 (7.4-10.4) fl Immature Gran % (Auto) 0.5 0.8 H (0-0.5) % Neut % (Auto) 62.9 65.8 (45.5-73.1) % Lymph % (Auto) 23.2 20.0 (18.3-44.2) % [place] % (Auto) 10.5 H 10.4 H (2.6-8.5) % Eos % (Auto) 2.7 2.4 (0-4.4) % Baso % (Auto) 0.2 0.6 (0.2-1.2) % Lymph # (Auto) 1.02 1.00 (0.9-3.2) K/mm3 [place] # (Auto) 0.5 0.5 (0.1-0.6) K/mm3 Eos # (Auto) 0.1 0.1 (0-0.3) K/mm3 Baso # (Auto) 0.0 0.0 (0.0-0.1) K/mm3 Abs Immat Gran (auto) 0.02 0.04 H (0.00-0.031) K/mm3 Absolute Neuts (auto) 2.8 3.3 (1.3-6.7) K/mm3 Absolute Nucleated RBC 0.000 0.000 (0.0-0.012) K/mm3 Nucleated RBC % 0.0 0.0 (0.0-0.2) % Sodium 135 L 136 L (137-145) mmol/L Potassium 4.1 4.0 (3.4-5.0) mmol/L Chloride 104 104 (98-107) mmol/L Carbon Dioxide 22 23 (22-30) mmol/L Anion Gap 9 9 (4-12) mmol/L BUN 13 14 (7-17) mg/dL Creatinine 0.63 L 0.56 L (0.7-1.0) mg/dL Estim Creat Clear Calc Not Reportable 90 Estimated GFR > 60 > 60 (59 - ) Glucose 111 H 108 (65-110) mg/dL Calcium 9.5 9.5 (8.4-10.2) mg/dL Total Bilirubin 3.7 H 4.8 H (0.2-1.3) mg/dL AST 361 H 366 H (14-36) U/L ALT 524 H 510 H (6-35) U/L Alkaline Phosphatase 499 H 508 H (38-126) U/L Total Protein 7.8 8.4 H (6.3-8.2) g/dL Albumin 4.5 4.4 (3.5-5.1) g/dL Lipase 205 126 (23-300) U/L Discharge Plan Discharge Clinical Impression: Pancreatic mass, Elevated liver enzymes Patient Disposition: Acute Care Hospital Condition: Stable Instructions: Antibiotic Form, Transaminitis (ED) Additional Instructions: You were seen in the emergency department for elevated liver enzymes and a pancreatic mass. Please go to your appointment tomorrow at [facility] with Dr. Magana. If you develop any new or worsening symptoms you can present to an ER for re-evaluation. Patient Language: Kiswahili Prescriptions: No Action sertraline 100 mg tablet 100 mg PO DAILY bupropion HCl [Wellbutrin XL] 150 mg tablet extended release 24 hr 150 mg PO QAM alprazolam [Xanax] 0.25 mg tablet 0.25 mg PO DAILY PRN (Reason: anxiety) Qty: 30 0RF (DME) CPAP Equipment See Rx Instructions .Route .MEDSUPPLY Qty: 1 0RF Rx Instructions: Rx: Resmed AirSense 11 CPAP at 16 cm H2O with EPR of 2, size medium Resmed AirTouch F20 full face mask, CPAP filters/tubing and heated humidity Dx: G47.33 Length of treatment: 99+ months DME: Insurance/Patient to choose *Please link me to CPAP through [facility]* Physician: Dr. Awa Roque DO Follow-up/Referrals: Jeanne Dinh, [employer] [facility] [Primary Care Provider] -
--- NOTE | 2025-03-20 14:51 | PC.NURSE ---
Junie with [facility] center called asking for triage information. She states pt is accepted to [facility] by hospitalist Dr. Rhodes. States they currently are on waitlist for a bed.
--- NOTE | 2025-03-20 18:05 | PC.NURSE ---
Pt requesting something to eat/drink. made aware. Dr. Camacho states pt allowed. Pt provided with water and crackers
[2025-03-20] MEDS: ALPRAZolam (*CRX) 0.25 MG TABLET PO (21:11)
--- NOTE | 2025-03-20 22:44 | PC.NURSE ---
[facility] transfer line called for pt update. states no bed availability currently and pt is still on the list for transfer.
[2025-03-21] VITALS (9 sets, daily range): BP systolic 128–154; BP diastolic 73–92; PULSE 74–88; RESP 14–27; TEMP 37.1; O2SAT 93–99
[2025-03-21] MEDS: ACETAMINOPHEN 325 MG TABLET 650 MG (02:34)
[2025-03-21 07:54] LABS: Hematocrit 46.6 % (37.0-47.0); Hemoglobin 15.1 g/dL (12.0-15.0); Immature Granulocyte Percent A 0.8 % (0-0.5); Lymphocytes Absolute Auto 1.00 K/mm3 (0.9-3.2); Mean Corpuscular HGB Conc 32.4 g/dl (32-36); Mean Corpuscular Hemoglobin 30.7 pg (26-34); Mean Corpuscular Volume 94.7 fl (80-100); Nucleated Red Blood Cells Absolute Auto 0.000 K/mm3 (0.0-0.012); Nucleated Red Blood Cells Perc 0.0 % (0.0-0.2); Platelet Count Result 180 k/mm3 (150-375); Red Blood Count 4.92 M/mm3 (4.2-5.4); White Blood Count 5.0 K/mm3 (4.5-10.0)
[2025-03-21 08:14] LABS: Alanine Aminotransferase 510 U/L (6-35); Albumin Level 4.4 g/dL (3.5-5.1); Alkaline Phosphatase 508 U/L (38-126); Anion Gap 9 mmol/L (4-12); Aspartate Amino Transferase 366 U/L (14-36); Bilirubin,Total 4.8 mg/dL (0.2-1.3); Blood Urea Nitrogen 14 mg/dL (7-17); Calcium 9.5 mg/dL (8.4-10.2); Carbon Dioxide 23 mmol/L (22-30); Chloride 104 mmol/L (98-107); Estimated CRCL calculation 90 ml/min; Estimated Glomerular Filt Rate > 60; Glucose 108 mg/dL (65-110); Lipase 126 U/L (23-300); Potassium 4.0 mmol/L (3.4-5.0); Sodium 136 mmol/L (137-145); Total Protein 8.4 g/dL (6.3-8.2)
--- NOTE | 2025-03-21 08:53 | PC.NURSE ---
Spoke with akndy from [facility]. no bed available at this time. will call when one is available
[2025-03-21] MEDS: buPROPion HCL XL (24 HR) 150 MG TABCR PO (09:27)
[2025-03-21] MEDS: SERTRALINE HCL 50 MG TABLET 100 MG PO (09:27)
[2025-03-21] MEDS: ACETAMINOPHEN 500 MG TABLET 1000 MG PO (09:27)
== END 2025-03-21 12:55 | disposition short-term general hospital (02) ==
PROVIDERS: Emergency Provider Emergency Medicine; PCP Clinical Nurse Specialist
DX: K86.9 Disease of pancreas, unspecified (principal); R74.01 Elevation of levels of liver transaminase levels; F32.A Depression, unspecified
CPT/HCPCS: 36415; 74177; 80053; 83690; 85025; 99285; A9270; Q9967